=== PATIENT | male | born 1965 | race African-American/Black ===

== ENCOUNTER 2016-11-22 15:31 | Emergency (ER) | payer MEDICAID, OTHER ==
[~2016-11-22] VITALS: Ht 180.3 cm; Wt 113.4 kg
[2016-11-22 15:31] VITALS: BP 136/88
[~2016-11-22 15:31] MED LIST: FLUO20CA36 PO; HALO5TAB8 PO; OLAN5TAB3 PO
--- NOTE | 2016-11-22 15:31 | NUR ---
FOR PSYCH EVAL PT STS "I FELT THREATENED, I DONT FEEL SAFE OUT THERE". DENIES SI HI. NAD NOTED. PT AAO X4, AMB WITH STEADY GAIT. RR EVEN AND UNLABORED. PENDING MD BUSH.
--- NOTE | 2016-11-22 16:30 | NUR ---
FOOD ORDERD FOR PT. PT STATES WANTS ANOTHER FOOD TRAY. INSTRUCTED PT WE WILL PROVIDE SNACK WELL AT THIS TIME
--- NOTE | 2016-11-22 16:42 | NUR ---
UA OBTAINED CALLED LAB
[2016-11-22 17:08] LABS: BASOPHILS % (AUTO) 0.6 % (0.0-2.0); EOSINOPHILS # (AUTO) 0.1 /CMM (0.0-0.7); EOSINOPHILS % (AUTO) 1.3 % (0.0-6.0); HEMATOCRIT 44 % (39-51); HEMOGLOBIN 14.6 g/dL (13.5-17.5); LYMPHOCYTES # (AUTO) 1.6 /CMM (0.8-4.8); LYMPHOCYTES % (AUTO) 24.8 % (20.0-44.0); MEAN CORPUSCULAR HEMOGLOBIN 27 PG (26.0-33.0); MEAN CORPUSCULAR HGB CONC 33 g/dl (31.0-36.0); MEAN CORPUSCULAR VOLUME 82 fL (80-96); MONOCYTES # (AUTO) 0.4 /CMM (0.1-1.30); MONOCYTES % (AUTO) 6.9 % (2.0-12.0); NEUTROPHILS # (AUTO) 4.2 /CMM (1.8-8.9); NEUTROPHILS % (AUTO) 66.4 % (43.0-81.0); PLATELET COUNT (AUTO) 184 /CMM (150-450); RDW COEFFICIENT OF VARIATION 13.8 (11.5-15.0); RED BLOOD CELL COUNT(AUTO) 5.37 MIL/uL (4.5-6.0); WHITE BLOOD COUNT (AUTO) 6.4 K/uL (4.3-11.0)
[2016-11-22 17:15] LABS: APPEARANCE,URINE CLEAR (CLEAR); BILIRUBIN,URINE NEGATIVE (NEGATIVE); BLOOD, URINE NEGATIVE Ery/uL (NEGATIVE); COLOR,URINE YELLOW (YELLOW); KETONES,URINE NEGATIVE (NEGATIVE); LEUKOCYTE ESTERASE ,URINE NEGATIVE (NEGATIVE); NITRITE, URINE NEGATIVE (NEGATIVE); PROTEIN,URINE NEGATIVE (NEGATIVE); UGLUCOSE NEGATIVE (NEGATIVE); UROBILINOGEN,URINE 0.2 EU/dL (0.2)
[2016-11-22 17:24] LABS: CALCIUM, SERUM 8.7 mg/dL (8.5-10.1); CARBON DIOXIDE 26 mmol/L (21-32); CHLORIDE 108 mmol/L (98-107); CREATININE 1.1 mg/dL (0.6-1.3); GLUCOSE 100 mg/dL (74-106); POTASSIUM 3.9 mmol/L (3.5-5.1); SODIUM SERUM 144 mmol/L (136-145); UREA NITROGEN, BLOOD 17 mg/dL (7-18)
[2016-11-22 17:27] LABS: ALANINE AMINOTRANSFERASE 38 U/L (12-78); ALBUMIN 3.9 g/dL (3.4-5.0); ALCOHOL, BLOOD < 3 mg/dL (0-0); ALKALINE PHOSPHATASE 99 U/L (46-116); ASPARTATE AMINOTRANSFERASE 24 U/L (15-37); BILIRUBIN,TOTAL 0.2 mg/dL (0.2-1.0); SALICYLATE 3.8 mg/dL (2.8-20.0); TOTAL PROTEIN, SERUM 7.4 g/dL (6.4-8.2)
[2016-11-22 17:28] LABS: ACETAMINOPHEN 0 ug/ml (10-30)
--- NOTE | 2016-11-22 18:11 | NUR ---
CALLED [facility] FOR PSYCH EVAL ETA 1 HOUR
--- NOTE | 2016-11-22 19:19 | NUR ---
Patient eloped from facility. ER MD notified.
--- NOTE | 2016-11-22 19:57 | NUR ---
CALLED [employer] NON EMERGENCY DISPATCH TO NOTIFY THEM OF PATIENT ELOPING
== END 2016-11-22 19:19 | disposition left against medical advice (07) ==
LOC: ER 15:33
DX: F32.9 Major depressive disorder, single episode, unspecified (principal); F17.200 Nicotine dependence, unspecified, uncomplicated; F20.9 Schizophrenia, unspecified
CPT/HCPCS: 36415; 80048; 80076; 80305; 80329; 81001; 85025; 99284; A4606; G0480 ×2; Z7610; 81000-TC

== ENCOUNTER 2017-04-13 17:19 | Emergency (ER) | payer MEDICAID ==
[~2017-04-13] VITALS: Ht 182.9 cm; Wt 90.7 kg
--- NOTE | 2017-04-13 17:40 | NUR ---
FEELS LIKE LIFE IS IN DANGER, DENIES SI OR HI, D/C FROM [facility] TODAY, NAD NOTED, VSS, RESP EVEN AND UNLABORED, PT PUT ON MONITOR, WAITING FOR MD BUSH
--- NOTE | 2017-04-13 17:43 | NUR ---
URINE COLLECTED AND SENT TO LAB
[2017-04-13 18:10] LABS: BASOPHILS # (AUTO) 0.1 /CMM (0.0-0.2); BASOPHILS % (AUTO) 0.8 % (0.0-2.0); EOSINOPHILS # (AUTO) 0.1 /CMM (0.0-0.7); EOSINOPHILS % (AUTO) 1.2 % (0.0-6.0); HEMATOCRIT 38 % (39-51); HEMOGLOBIN 13.2 g/dL (13.5-17.5); LYMPHOCYTES # (AUTO) 1.5 /CMM (0.8-4.8); LYMPHOCYTES % (AUTO) 23.4 % (20.0-44.0); MEAN CORPUSCULAR HEMOGLOBIN 28 PG (26.0-33.0); MEAN CORPUSCULAR HGB CONC 35 g/dl (31.0-36.0); MEAN CORPUSCULAR VOLUME 80 fL (80-96); MONOCYTES # (AUTO) 0.4 /CMM (0.1-1.30); MONOCYTES % (AUTO) 6.2 % (2.0-12.0); NEUTROPHILS # (AUTO) 4.4 /CMM (1.8-8.9); NEUTROPHILS % (AUTO) 68.4 % (43.0-81.0); PLATELET COUNT (AUTO) 186 /CMM (150-450); WHITE BLOOD COUNT (AUTO) 6.5 K/uL (4.3-11.0)
[2017-04-13 18:21] LABS: CALCIUM, SERUM 8.8 mg/dL (8.5-10.1); CARBON DIOXIDE 30 mmol/L (21-32); CHLORIDE 108 mmol/L (98-107); CREATININE 1.5 mg/dL (0.6-1.3); GLUCOSE 86 mg/dL (74-106); POTASSIUM 3.9 mmol/L (3.5-5.1); SODIUM SERUM 145 mmol/L (136-145); UREA NITROGEN, BLOOD 19 mg/dL (7-18)
[2017-04-13 18:27] LABS: ACETAMINOPHEN < 10 ug/ml (10-30); ALANINE AMINOTRANSFERASE 32 U/L (12-78); ALBUMIN 3.5 g/dL (3.4-5.0); ALCOHOL, BLOOD < 3 mg/dL (0-0); ALKALINE PHOSPHATASE 87 U/L (46-116); ASPARTATE AMINOTRANSFERASE 31 U/L (15-37); BILIRUBIN,TOTAL 0.2 mg/dL (0.2-1.0); SALICYLATE 2.5 mg/dL (2.8-20.0); TOTAL PROTEIN, SERUM 6.8 g/dL (6.4-8.2)
[2017-04-13 19:02] LABS: APPEARANCE,URINE Clear (CLEAR); BILIRUBIN,URINE Negative (NEGATIVE); BLOOD, URINE Negative Ery/uL (NEGATIVE); COLOR,URINE Yellow (YELLOW); KETONES,URINE 15 (NEGATIVE); LEUKOCYTE ESTERASE ,URINE Trace (NEGATIVE); NITRITE, URINE Negative (NEGATIVE); PH,URINE 6.5 (5.0-8.0); PROTEIN,URINE Negative (NEGATIVE); UGLUCOSE Negative (NEGATIVE); UROBILINOGEN,URINE 0.2 EU/dL (0.2)
[2017-04-13 19:11] LABS: BACTERIA,URINE 1+ /HPF (None Seen); MUCUS,URINE Moderate /LPF (None Seen); RBC,URINE NONE SEEN /HPF (0-2); SQUAMOUS EPITHELIAL CELL,UR None Seen /HPF (None Seen); WBC,URINE NONE SEEN /HPF (0-3)
--- NOTE | 2017-04-13 19:29 | NUR ---
art, crisis nurse at
--- NOTE | 2017-04-13 20:44 | NUR ---
meal given to the pt
[2017-04-13 22:54] VITALS: BP 145/89
--- NOTE | 2017-04-13 22:54 | NUR ---
Patient is resting comfortably in bed with eyes closed. Easily aroused. VSS
--- NOTE | 2017-04-14 04:29 | NUR ---
Patient eloped from facility. ER MD notified.
== END 2017-04-14 04:30 | disposition left against medical advice (07) ==
LOC: ER 17:23
DX: R45.851 Suicidal ideations (principal); F32.9 Major depressive disorder, single episode, unspecified; F17.200 Nicotine dependence, unspecified, uncomplicated; F20.9 Schizophrenia, unspecified; Z59.0 Homelessness
CPT/HCPCS: 36415; 80048; 80076; 80305; 80329; 81001; 85025; 99285; A4606; G0480 ×2; Z7610; 81000-TC

== ENCOUNTER 2018-03-12 12:55 | Emergency (ER) | payer MEDICAID ==
[~2018-03-12] VITALS: Ht 180.3 cm; Wt 121.1 kg
--- NOTE | 2018-03-12 13:18 | NUR ---
52 Y/O MALE PLACED IN BED 13. PT APPEARS VERY DEPRESSED AND LOST. PT EXPRESSING SUICIDAL THOUGHS WITHOUT A PLAN
[2018-03-12 13:38] LABS: BASOPHILS # (AUTO) 0.1 /CMM (0.0-0.2); EOSINOPHILS % (AUTO) 2.3 % (0.0-6.0); HEMATOCRIT 40 % (39-51); HEMOGLOBIN 13.5 g/dL (13.5-17.5); LYMPHOCYTES # (AUTO) 1.6 /CMM (0.8-4.8); LYMPHOCYTES % (AUTO) 27.8 % (20.0-44.0); MEAN CORPUSCULAR HGB CONC 34 g/dl (31.0-36.0); MEAN CORPUSCULAR VOLUME 84 fL (80-96); MONOCYTES # (AUTO) 0.6 /CMM (0.1-1.30); MONOCYTES % (AUTO) 9.8 % (2.0-12.0); NEUTROPHILS # (AUTO) 3.4 /CMM (1.8-8.9); NEUTROPHILS % (AUTO) 59.1 % (43.0-81.0); PLATELET COUNT (AUTO) 183 /CMM (150-450); RED BLOOD CELL COUNT(AUTO) 4.81 MIL/uL (4.5-6.0); WHITE BLOOD COUNT (AUTO) 5.8 K/uL (4.3-11.0)
[2018-03-12 13:58] LABS: CALCIUM, SERUM 8.5 mg/dL (8.5-10.1); CARBON DIOXIDE 27 mmol/L (21-32); CHLORIDE 109 mmol/L (98-107); CREATININE 1.3 mg/dL (0.6-1.3); GLUCOSE 117 mg/dL (74-106); POTASSIUM 4.1 mmol/L (3.5-5.1); SODIUM SERUM 144 mmol/L (136-145); UREA NITROGEN, BLOOD 19 mg/dL (7-18)
[2018-03-12 14:03] LABS: ACETAMINOPHEN < 2 ug/ml (10-30); ALANINE AMINOTRANSFERASE 31 U/L (12-78); ALBUMIN 3.5 g/dL (3.4-5.0); ALCOHOL, BLOOD < 3 mg/dL (0-0); ALKALINE PHOSPHATASE 108 U/L (46-116); ASPARTATE AMINOTRANSFERASE 21 U/L (15-37); BILIRUBIN,TOTAL 0.2 mg/dL (0.2-1.0); SALICYLATE 3.8 mg/dL (2.8-20.0); TOTAL PROTEIN, SERUM 6.7 g/dL (6.4-8.2)
--- NOTE | 2018-03-12 14:06 | NUR ---
PT HAS A HISTORY OF SCHIZOPHRENIA. NOT COMPLIANT WITH HIS MEDICATIONS. PT GIVEN LUNCH. PT REQUESTING POPCORN RATHER THAN WHAT WAS SERVED
--- NOTE | 2018-03-12 14:08 | NUR ---
BLOOD HAS BEEN DRAWN AND SENT. WAITING FOR URINE.
[2018-03-12 16:20] LABS: APPEARANCE,URINE CLEAR (CLEAR); BILIRUBIN,URINE NEGATIVE (NEGATIVE); BLOOD, URINE NEGATIVE Ery/uL (NEGATIVE); COLOR,URINE YELLOW (YELLOW); KETONES,URINE TRACE (NEGATIVE); LEUKOCYTE ESTERASE ,URINE NEGATIVE (NEGATIVE); NITRITE, URINE NEGATIVE (NEGATIVE); PROTEIN,URINE NEGATIVE (NEGATIVE); UGLUCOSE NEGATIVE (NEGATIVE); UROBILINOGEN,URINE 0.2 EU/dL (0.2)
[2018-03-12 16:31] LABS: HYALINE CASTS, URINE Rare /LPF (None Seen)
[2018-03-12 16:32] LABS: BACTERIA,URINE Few /HPF (None Seen); RBC,URINE 0-2 /HPF (0-2); SQUAMOUS EPITHELIAL CELL,UR Rare /HPF (None Seen); WBC,URINE 0-2 /HPF (0-3)
--- NOTE | 2018-03-12 17:32 | NUR ---
PT WAITING TO BE EVALUATED.
--- NOTE | 2018-03-12 18:53 | NUR ---
PT EVALUATED. PT TO BE A VOLUNTARY ADMISSION TO [facility].
[2018-03-12 19:32] VITALS: BP 132/65
--- NOTE | 2018-03-12 20:22 | NUR ---
RECEIVED A CALL FROM ANALIA AT [facility] AND WAS TOLD THIS PT WAS ACCEPTED UNDER DR TAVERAS. NUMBER FOR NURSE TO NURSE REPORT IS [phone]
--- NOTE | 2018-03-12 20:26 | NUR ---
CALLED [facility], SPOKE TO RACHANA. S TRANSPORT ETA 9:30PM TO [facility]. TRIP #[id number].
--- NOTE | 2018-03-12 20:43 | NUR ---
[facility] WAS CALLED AND REPORT GIVEN TO TIARA. WAITING FOR AMBULANCE TO TRANSPORT PT TO [place].
--- NOTE | 2018-03-12 21:41 | NUR ---
AMBULANCE ARRIVES. PT TRANSFERRED TO [place].
== END 2018-03-12 21:44 ==
LOC: ER 12:58
DX: R45.851 Suicidal ideations (principal); F20.9 Schizophrenia, unspecified; F32.9 Major depressive disorder, single episode, unspecified; F17.200 Nicotine dependence, unspecified, uncomplicated; Z59.0 Homelessness; Z79.899 Other long term (current) drug therapy
CPT/HCPCS: 36415; 80048-TC; 80076-TC; 80305; 81000-TC; 85025-TC; A4606; G0480; Z7610

== ENCOUNTER 2018-04-06 19:19 | Emergency (ER) | payer MEDICAID ==
[~2018-04-06] VITALS: Ht 180.3 cm; Wt 122.9 kg
--- NOTE | 2018-04-06 20:09 | NUR ---
PT PROVIDED URINE SAMPLE AND LABS ARE BEING DRAWN BY 2ND PRESSMAN IN TRIAGE ROOM; PENDING OPEN BED
[2018-04-06 20:29] LABS: BASOPHILS # (AUTO) 0.1 /CMM (0.0-0.2); EOSINOPHILS % (AUTO) 1.4 % (0.0-6.0); HEMATOCRIT 43 % (39-51); LYMPHOCYTES # (AUTO) 2.5 /CMM (0.8-4.8); LYMPHOCYTES % (AUTO) 35.1 % (20.0-44.0); MEAN CORPUSCULAR HGB CONC 33 g/dl (31.0-36.0); MEAN CORPUSCULAR VOLUME 83 fL (80-96); MONOCYTES # (AUTO) 0.7 /CMM (0.1-1.30); MONOCYTES % (AUTO) 9.5 % (2.0-12.0); NEUTROPHILS # (AUTO) 3.8 /CMM (1.8-8.9); PLATELET COUNT (AUTO) 172 /CMM (150-450); RED BLOOD CELL COUNT(AUTO) 5.13 MIL/uL (4.5-6.0); WHITE BLOOD COUNT (AUTO) 7.2 K/uL (4.3-11.0)
[2018-04-06 20:33] LABS: APPEARANCE,URINE Clear (CLEAR); BILIRUBIN,URINE Negative (NEGATIVE); BLOOD, URINE Negative Ery/uL (NEGATIVE); COLOR,URINE Yellow (YELLOW); KETONES,URINE Trace (NEGATIVE); LEUKOCYTE ESTERASE ,URINE Negative (NEGATIVE); NITRITE, URINE Negative (NEGATIVE); PROTEIN,URINE Negative (NEGATIVE); UGLUCOSE Negative (NEGATIVE); UROBILINOGEN,URINE 0.2 EU/dL (0.2)
[2018-04-06 20:41] LABS: CALCIUM, SERUM 9.1 mg/dL (8.5-10.1); CARBON DIOXIDE 28 mmol/L (21-32); CHLORIDE 106 mmol/L (98-107); CREATININE 1.2 mg/dL (0.6-1.3); GLUCOSE 87 mg/dL (74-106); POTASSIUM 3.8 mmol/L (3.5-5.1); SODIUM SERUM 142 mmol/L (136-145); UREA NITROGEN, BLOOD 23 mg/dL (7-18)
[2018-04-06 20:55] LABS: ACETAMINOPHEN 0 ug/ml (10-30); ALANINE AMINOTRANSFERASE 30 U/L (12-78); ALCOHOL, BLOOD < 3 mg/dL (0-0); ALKALINE PHOSPHATASE 99 U/L (46-116); ASPARTATE AMINOTRANSFERASE 25 U/L (15-37); BILIRUBIN,DIRECT 0.1 mg/dL (0.0-0.2); BILIRUBIN,TOTAL 0.2 mg/dL (0.2-1.0); SALICYLATE 4.2 mg/dL (2.8-20.0); TOTAL PROTEIN, SERUM 7.4 g/dL (6.4-8.2)
[2018-04-06 21:12] LABS: BACTERIA,URINE Rare /HPF (None Seen); MUCUS,URINE Many /LPF (None Seen); RBC,URINE 0-2 /HPF (0-2); SQUAMOUS EPITHELIAL CELL,UR 0-2 /HPF (None Seen); WBC,URINE 0-2 /HPF (0-3)
--- NOTE | 2018-04-06 22:20 | NUR ---
PER ANALIA AT [facility], ALL 3 FACILITIES ARE AT [facility] BUT HE ASKED FOR CLINICALS TO BE FAXED IN CASE A BED OPENS OVERNIGHT. CLINICALS FAXED TO [phone].
--- NOTE | 2018-04-06 23:26 | NUR ---
PT CALLED FROM [facility] X2 BY FINANCIAL AID DIRECTOR, PT IS NOT IN WR BUT HIS BELONGINGS ARE PRESENT
[2018-04-07 00:53] VITALS: BP 158/98
== END 2018-04-07 00:53 | disposition home or self-care (01) ==
LOC: ER 19:26
DX: R45.851 Suicidal ideations (principal); F30.9 Manic episode, unspecified; F17.200 Nicotine dependence, unspecified, uncomplicated; Z59.0 Homelessness; Z79.899 Other long term (current) drug therapy
CPT/HCPCS: 36415; 80048-TC; 80076-TC; 80305; 81000-TC; 85025-TC; G0480

== ENCOUNTER 2018-05-20 16:03 | Emergency (ER) | payer MEDICAID ==
[~2018-05-20] VITALS: Ht 180.3 cm; Wt 122.9 kg
[2018-05-20 17:31] LABS: BASOPHILS % (AUTO) 0.7 % (0.0-2.0); EOSINOPHILS % (AUTO) 1.5 % (0.0-6.0); HEMATOCRIT 44 % (39-51); HEMOGLOBIN 14.7 g/dL (13.5-17.5); LYMPHOCYTES # (AUTO) 2.1 /CMM (0.8-4.8); LYMPHOCYTES % (AUTO) 29.4 % (20.0-44.0); MEAN CORPUSCULAR HGB CONC 33 g/dl (31.0-36.0); MEAN CORPUSCULAR VOLUME 83 fL (80-96); MONOCYTES # (AUTO) 0.8 /CMM (0.1-1.30); MONOCYTES % (AUTO) 11.8 % (2.0-12.0); NEUTROPHILS % (AUTO) 56.6 % (43.0-81.0); PLATELET COUNT (AUTO) 192 /CMM (150-450); RED BLOOD CELL COUNT(AUTO) 5.34 MIL/uL (4.5-6.0); WHITE BLOOD COUNT (AUTO) 7.1 K/uL (4.3-11.0)
[2018-05-20 17:47] LABS: CALCIUM, SERUM 9.4 mg/dL (8.5-10.1); CARBON DIOXIDE 29 mmol/L (21-32); CHLORIDE 107 mmol/L (98-107); CREATININE 1.1 mg/dL (0.6-1.3); GLUCOSE 90 mg/dL (74-106); POTASSIUM 4.1 mmol/L (3.5-5.1); SODIUM SERUM 143 mmol/L (136-145); UREA NITROGEN, BLOOD 21 mg/dL (7-18)
[2018-05-20 18:00] LABS: ACETAMINOPHEN < 10 ug/ml (10-30); ALANINE AMINOTRANSFERASE 31 U/L (12-78); ALBUMIN 4.1 g/dL (3.4-5.0); ALCOHOL, BLOOD < 3 mg/dL (0-0); ALKALINE PHOSPHATASE 110 U/L (46-116); ASPARTATE AMINOTRANSFERASE 30 U/L (15-37); BILIRUBIN,DIRECT 0.1 mg/dL (0.0-0.2); BILIRUBIN,TOTAL 0.3 mg/dL (0.2-1.0); SALICYLATE 3.7 mg/dL (2.8-20.0); TOTAL PROTEIN, SERUM 7.6 g/dL (6.4-8.2)
--- NOTE | 2018-05-20 18:30 | NUR ---
PT REC'D A FOOD TRAY AND IS TOLERATING PO WELL.
[2018-05-20 18:31] LABS: APPEARANCE,URINE Clear (CLEAR); BILIRUBIN,URINE Negative (NEGATIVE); BLOOD, URINE Trace-intact Ery/uL (NEGATIVE); COLOR,URINE Yellow (YELLOW); KETONES,URINE 15 (NEGATIVE); LEUKOCYTE ESTERASE ,URINE Negative (NEGATIVE); NITRITE, URINE Negative (NEGATIVE); PROTEIN,URINE Negative (NEGATIVE); UGLUCOSE Negative (NEGATIVE); UROBILINOGEN,URINE 0.2 EU/dL (0.2)
[2018-05-20 18:36] LABS: BACTERIA,URINE Rare /HPF (None Seen); RBC,URINE 0-2 /HPF (0-2); SQUAMOUS EPITHELIAL CELL,UR None Seen /HPF (None Seen); WBC,URINE NONE SEEN /HPF (0-3)
[2018-05-20 18:37] LABS: MUCUS,URINE Many /LPF (None Seen)
--- NOTE | 2018-05-20 19:42 | NUR ---
MICHELL RN/BOOK AGENT ARRIVED AND IS REVIEWING THE PT'S CHART.
--- NOTE | 2018-05-20 20:30 | NUR ---
PT REC'D AN EGG SALAD SANDWICH. PT TOLERATED PO WELL.
--- NOTE | 2018-05-20 21:25 | NUR ---
[facility] CALLED FOR TRANSPORT ETA 0000, TRIP# [id number]
--- NOTE | 2018-05-20 21:30 | NUR ---
CALLED STACIA DIAZ FOR REPORT AT [facility].
--- NOTE | 2018-05-20 22:15 | NUR ---
PT REC'D PUDDING X 2 AND JELLO. PT TOLERATED PO WELL.
--- NOTE | 2018-05-20 23:14 | NUR ---
PT APPEARS TO BE RESTING COMFORTABLY WITH NO S/S OF PAIN OR DISTRESS.
[2018-05-20 23:50] VITALS: BP 148/78
--- NOTE | 2018-05-20 23:50 | NUR ---
REPORT GIVEN TO RIGOBERTO EMT. PT BEING TRANSFERRED OUT TO [facility].
== END 2018-05-20 23:52 ==
LOC: ER 16:03
DX: R45.851 Suicidal ideations (principal); F32.9 Major depressive disorder, single episode, unspecified; F17.200 Nicotine dependence, unspecified, uncomplicated; Z59.0 Homelessness; Z79.899 Other long term (current) drug therapy
CPT/HCPCS: 36415; 80048; 80076; 80305; 80307; 80329; 81001; 85025; 99285; A4606; G0480; 81000-TC

== ENCOUNTER 2018-07-08 14:37 | Emergency (ER) | payer MEDICAID ==
[~2018-07-08] VITALS: Ht 170.2 cm; Wt 70.3 kg
[2018-07-08] MEDS ORDERED: OLANZAPINE 5 MG TABLET ONE (15:17)
--- NOTE | 2018-07-08 15:25 | NUR ---
PT BIB SELF, +SI/-HI. PT WANTS TO BE ADMITTED AT [facility]. PT STS HE'S PLANNING TO CUT HIMSELF WITH A GLASS. PT AAOX3, VSS. CALM & COOPERATIVE. DENIES ANY DISCOMFORT @ THIS TIME. PT SEEN & EVAL'D BY KYLEE HANDLEY. MEDICATED ORDERED & WILL CONT TO MONITOR.
[2018-07-08 15:28] LABS: BASOPHILS # (AUTO) 0.1 /CMM (0.0-0.2); BASOPHILS % (AUTO) 0.7 % (0.0-2.0); EOSINOPHILS % (AUTO) 0.8 % (0.0-6.0); HEMATOCRIT 42 % (39-51); HEMOGLOBIN 13.7 g/dL (13.5-17.5); LYMPHOCYTES # (AUTO) 1.8 /CMM (0.8-4.8); LYMPHOCYTES % (AUTO) 21.8 % (20.0-44.0); MEAN CORPUSCULAR HGB CONC 33 g/dl (31.0-36.0); MEAN CORPUSCULAR VOLUME 83 fL (80-96); MONOCYTES # (AUTO) 0.7 /CMM (0.1-1.30); MONOCYTES % (AUTO) 8.5 % (2.0-12.0); NEUTROPHILS # (AUTO) 5.5 /CMM (1.8-8.9); NEUTROPHILS % (AUTO) 68.2 % (43.0-81.0); PLATELET COUNT (AUTO) 181 /CMM (150-450); RED BLOOD CELL COUNT(AUTO) 5.01 MIL/uL (4.5-6.0)
[2018-07-08] MEDS ORDERED: OLANZAPINE 5 MG TABLET PO ONE (15:30)
[2018-07-08 15:33] LABS: CALCIUM, SERUM 9.1 mg/dL (8.5-10.1); CARBON DIOXIDE 26 mmol/L (21-32); CHLORIDE 107 mmol/L (98-107); CREATININE 1.2 mg/dL (0.6-1.3); GLUCOSE 127 mg/dL (74-106); POTASSIUM 3.3 mmol/L (3.5-5.1); SODIUM SERUM 142 mmol/L (136-145); UREA NITROGEN, BLOOD 22 mg/dL (7-18)
[2018-07-08 15:43] LABS: ALANINE AMINOTRANSFERASE 28 U/L (12-78); ALBUMIN 4.3 g/dL (3.4-5.0); ALKALINE PHOSPHATASE 101 U/L (46-116); ASPARTATE AMINOTRANSFERASE 29 U/L (15-37); BILIRUBIN,DIRECT 0.1 mg/dL (0.0-0.2); BILIRUBIN,TOTAL 0.4 mg/dL (0.2-1.0); SALICYLATE 3.9 mg/dL (2.8-20.0); TOTAL PROTEIN, SERUM 7.6 g/dL (6.4-8.2)
[2018-07-08 15:46] LABS: ACETAMINOPHEN < 2 ug/ml (10-30); ALCOHOL, BLOOD < 3 mg/dL (0-0)
[2018-07-08 16:44] LABS: APPEARANCE,URINE Clear (CLEAR); BILIRUBIN,URINE SMALL (NEGATIVE); BLOOD, URINE Negative Ery/uL (NEGATIVE); COLOR,URINE Yellow (YELLOW); KETONES,URINE Trace (NEGATIVE); LEUKOCYTE ESTERASE ,URINE Negative (NEGATIVE); NITRITE, URINE Negative (NEGATIVE); PH,URINE 5.5 (5.0-8.0); PROTEIN,URINE 30 mg/dl (NEGATIVE); UGLUCOSE Negative (NEGATIVE); UROBILINOGEN,URINE 0.2 EU/dL (0.2)
[2018-07-08 16:56] LABS: BACTERIA,URINE None seen /HPF (None Seen); RBC,URINE 0-2 /HPF (0-2); SQUAMOUS EPITHELIAL CELL,UR Few /HPF (None Seen); YEAST,URINE None Seen /HPF (None Seen)
[2018-07-08 16:57] LABS: MUCUS,URINE FEW /LPF (None Seen)
--- NOTE | 2018-07-08 17:30 | NUR ---
PT CALM & COOPERATIVE, NAD NOTED @ THIS TIME. WILL CONT TO MONITOR.
--- NOTE | 2018-07-08 19:22 | NUR ---
Patient is resting comfortably in bed with eyes closed. Easily aroused. VSS
--- NOTE | 2018-07-08 19:43 | NUR ---
[facility] transport eta 2100 trip # [id number]
--- NOTE | 2018-07-08 20:30 | NUR ---
Patient is resting comfortably in bed with eyes closed. Easily aroused. VSS
--- NOTE | 2018-07-08 21:35 | NUR ---
called [facility] for eta, was informed transport will be here in "15mins"
--- NOTE | 2018-07-08 21:45 | NUR ---
CALLED [facility] & GAVE REPORT TO STACIA GONZALES FOR CONT OF CARE.
[2018-07-08] MEDS ORDERED: AMLODIPINE BESYLATE 5 MG TABLET ONE (22:43)
--- NOTE | 2018-07-08 22:44 | NUR ---
PER PSYCHOLOGY DEPARTMENT CHAIR AT [facility], PT IS OKAY TO BE TRANSFERRED AFTER BEING MEDICATED WITH NORVASC.
[2018-07-08 22:46] VITALS: BP 164/106
[2018-07-08] MEDS ORDERED: AMLODIPINE BESYLATE 5 MG TABLET PO ONE (23:00)
== END 2018-07-08 22:50 ==
LOC: ER 14:37
DX: R45.851 Suicidal ideations (principal); F17.200 Nicotine dependence, unspecified, uncomplicated; Z59.0 Homelessness; Z79.899 Other long term (current) drug therapy
CPT/HCPCS: 36415; 80048; 80076; 80305; 80307; 80329; 81001; 85025; 99285; G0480; 81000-TC

== ENCOUNTER 2018-08-07 11:15 | Emergency (ER) | payer MEDICAID ==
[~2018-08-07] VITALS: Ht 180.3 cm; Wt 122.9 kg
--- NOTE | 2018-08-07 11:38 | NUR ---
CALLED PT IN WAITING ROOM, NO RESPONSE.
[2018-08-07 12:19] LABS: APPEARANCE,URINE Clear (CLEAR); BILIRUBIN,URINE Negative (NEGATIVE); BLOOD, URINE Negative Ery/uL (NEGATIVE); COLOR,URINE Yellow (YELLOW); KETONES,URINE Negative (NEGATIVE); LEUKOCYTE ESTERASE ,URINE Negative (NEGATIVE); NITRITE, URINE Negative (NEGATIVE); PH,URINE 5.5 (5.0-8.0); PROTEIN,URINE Negative (NEGATIVE); UGLUCOSE Negative (NEGATIVE); UROBILINOGEN,URINE 0.2 EU/dL (0.2)
[2018-08-07 12:34] LABS: BASOPHILS # (AUTO) 0.1 /CMM (0.0-0.2); BASOPHILS % (AUTO) 0.8 % (0.0-2.0); EOSINOPHILS % (AUTO) 1.8 % (0.0-6.0); HEMATOCRIT 40 % (39-51); HEMOGLOBIN 13.4 g/dL (13.5-17.5); LYMPHOCYTES # (AUTO) 1.6 /CMM (0.8-4.8); LYMPHOCYTES % (AUTO) 24.9 % (20.0-44.0); MEAN CORPUSCULAR HGB CONC 33 g/dl (31.0-36.0); MEAN CORPUSCULAR VOLUME 84 fL (80-96); MONOCYTES # (AUTO) 0.6 /CMM (0.1-1.30); MONOCYTES % (AUTO) 9.3 % (2.0-12.0); NEUTROPHILS % (AUTO) 63.2 % (43.0-81.0); PLATELET COUNT (AUTO) 181 /CMM (150-450); RED BLOOD CELL COUNT(AUTO) 4.83 MIL/uL (4.5-6.0); WHITE BLOOD COUNT (AUTO) 6.3 K/uL (4.3-11.0)
[2018-08-07 12:40] LABS: CALCIUM, SERUM 8.5 mg/dL (8.5-10.1); CARBON DIOXIDE 31 mmol/L (21-32); CHLORIDE 109 mmol/L (98-107); CREATININE 1.2 mg/dL (0.6-1.3); GLUCOSE 87 mg/dL (74-106); POTASSIUM 3.8 mmol/L (3.5-5.1); SODIUM SERUM 145 mmol/L (136-145); UREA NITROGEN, BLOOD 17 mg/dL (7-18)
[2018-08-07 12:46] LABS: ALANINE AMINOTRANSFERASE 28 U/L (12-78); ALBUMIN 3.6 g/dL (3.4-5.0); ALCOHOL, BLOOD < 3 mg/dL (0-0); ALKALINE PHOSPHATASE 89 U/L (46-116); ASPARTATE AMINOTRANSFERASE 23 U/L (15-37); BILIRUBIN,DIRECT 0.1 mg/dL (0.0-0.2); BILIRUBIN,TOTAL 0.3 mg/dL (0.2-1.0); SALICYLATE 3.9 mg/dL (2.8-20.0); TOTAL PROTEIN, SERUM 6.6 g/dL (6.4-8.2)
[2018-08-07 12:49] LABS: ACETAMINOPHEN < 2 ug/ml (10-30)
--- NOTE | 2018-08-07 14:18 | NUR ---
ASSUMED CARE OF PT. PT APPEARS TO BE RESTING COMFORTABLY. PT IS MEDICALLY CLEARED AND AMANDEEP, ENGINEER CHIEF WAS CALLED FOR EVAL.
--- NOTE | 2018-08-07 14:18 | NUR ---
Note ricarda in EDM - 08/07/18 at 1420 by LUIS E ASSUMED CARE OF PT. PT IS MEDICALLY CLEARED AND AMANDEEP, MOVER HELPER WAS CALLED FOR EVAL. PT REQUESTED JUICE AND RECEIVED 2. PT PULLED OFF ALL LEADS FOR THE MONITOR AND DOES NOT WANT THEM ON AT THIS TIME.
--- NOTE | 2018-08-07 14:46 | NUR ---
CALLED CRISIS TEAM, CARLOS IS ON HER WAY. ONE HOUR ETA
--- NOTE | 2018-08-07 15:15 | NUR ---
PT APPEARS TO BE RESTING COMFORTABLY WITH NO S/S OF PAIN OR DISTRESS.
--- NOTE | 2018-08-07 15:46 | NUR ---
LISA BERNSTEINW IS AT THE BEDSIDE.
--- NOTE | 2018-08-07 17:30 | NUR ---
CALLING REPORT TO [facility]. AMBULANCE ARRIVED AND EMT'S ARE AT THE BEDSIDE. REPORT GIVEN TO AMBULANCE EMT.
[2018-08-07 17:40] VITALS: BP 156/98
--- NOTE | 2018-08-07 17:43 | NUR ---
REPORT GIVEN TO STACIA PICHARDO
--- NOTE | 2018-08-07 17:51 | NUR ---
PT IS BEING TRANSFERED TO [facility]IA AMBULANCE. VSS. REPORT GIVEN TO [facility] JOYNER.
== END 2018-08-07 17:55 ==
LOC: ER 11:15
DX: R45.851 Suicidal ideations (principal); F17.200 Nicotine dependence, unspecified, uncomplicated; F32.9 Major depressive disorder, single episode, unspecified; F10.10 Alcohol abuse, uncomplicated; Y90.0 Blood alcohol level of less than 20 mg/100 ml; Z59.0 Homelessness
CPT/HCPCS: 36415; 80048; 80076; 80305; 80307; 80329; 81001; 85025; 99285; G0480; J7040; 81000-TC

== ENCOUNTER 2018-09-02 17:57 | Emergency (ER) | payer MEDICAID ==
[~2018-09-02] VITALS: Ht 180.3 cm; Wt 113.4 kg
--- NOTE | 2018-09-02 20:01 | NUR ---
PT PRESENTED TO THE ER WITH A C/O SI W/PLAN TO OD ON ZYPREXA. PT IS AMBULATORY WITH A STEADY GAIT. VSS. PT STATED THAT HE SOMETIMES HEARS VOICES. PT IS TRYING TO GIVE A URINE SAMPLE.
--- NOTE | 2018-09-02 20:30 | NUR ---
ENRICO, LICENSED INSURANCE SALES AGENT, IS AT THE BEDSIDE FOR BLOOD DRAW.
[2018-09-02 20:31] LABS: APPEARANCE,URINE Clear (CLEAR); BILIRUBIN,URINE SMALL (NEGATIVE); BLOOD, URINE Negative Ery/uL (NEGATIVE); COLOR,URINE Yellow (YELLOW); KETONES,URINE 40 (NEGATIVE); LEUKOCYTE ESTERASE ,URINE Negative (NEGATIVE); NITRITE, URINE Negative (NEGATIVE); PH,URINE 5.5 (5.0-8.0); PROTEIN,URINE 30 mg/dl (NEGATIVE); UGLUCOSE Negative (NEGATIVE); UROBILINOGEN,URINE 0.2 EU/dL (0.2)
[2018-09-02 20:34] LABS: BASOPHILS # (AUTO) 0.1 /CMM (0.0-0.2); BASOPHILS % (AUTO) 0.7 % (0.0-2.0); EOSINOPHILS % (AUTO) 1.7 % (0.0-6.0); HEMATOCRIT 46 % (39-51); HEMOGLOBIN 15.2 g/dL (13.5-17.5); LYMPHOCYTES # (AUTO) 2.2 /CMM (0.8-4.8); LYMPHOCYTES % (AUTO) 31.9 % (20.0-44.0); MEAN CORPUSCULAR HGB CONC 33 g/dl (31.0-36.0); MEAN CORPUSCULAR VOLUME 83 fL (80-96); MONOCYTES # (AUTO) 0.8 /CMM (0.1-1.30); MONOCYTES % (AUTO) 10.9 % (2.0-12.0); NEUTROPHILS # (AUTO) 3.9 /CMM (1.8-8.9); NEUTROPHILS % (AUTO) 54.8 % (43.0-81.0); PLATELET COUNT (AUTO) 203 /CMM (150-450); RED BLOOD CELL COUNT(AUTO) 5.52 MIL/uL (4.5-6.0)
[2018-09-02 20:43] LABS: CALCIUM, SERUM 9.2 mg/dL (8.5-10.1); CARBON DIOXIDE 24 mmol/L (21-32); CHLORIDE 102 mmol/L (98-107); CREATININE 1.2 mg/dL (0.6-1.3); GLUCOSE 90 mg/dL (74-106); POTASSIUM 3.4 mmol/L (3.5-5.1); SODIUM SERUM 138 mmol/L (136-145); UREA NITROGEN, BLOOD 22 mg/dL (7-18)
--- NOTE | 2018-09-02 20:45 | NUR ---
PT REC'D A SANDWICH, JUICE, APPLE SAUCE, AND JELLO. PT IS TOLERATING PO WELL.
[2018-09-02 20:57] LABS: ALANINE AMINOTRANSFERASE 51 U/L (12-78); ALBUMIN 4.1 g/dL (3.4-5.0); ALCOHOL, BLOOD < 3 mg/dL (0-0); ALKALINE PHOSPHATASE 98 U/L (46-116); ASPARTATE AMINOTRANSFERASE 53 U/L (15-37); BILIRUBIN,DIRECT 0.1 mg/dL (0.0-0.2); BILIRUBIN,TOTAL 0.6 mg/dL (0.2-1.0); SALICYLATE 5.2 mg/dL (2.8-20.0); TOTAL PROTEIN, SERUM 7.8 g/dL (6.4-8.2)
[2018-09-02 21:01] LABS: BACTERIA,URINE None seen /HPF (None Seen); RBC,URINE 0-2 /HPF (0-2); SQUAMOUS EPITHELIAL CELL,UR Few /HPF (None Seen); WBC,URINE 0-2 /HPF (0-3)
[2018-09-02 21:01] LABS: ACETAMINOPHEN < 2 ug/ml (10-30)
--- NOTE | 2018-09-02 22:01 | NUR ---
CALLED ART PERFORMANCE TEST ARCHITECT FOR CRISIS EVAL
--- NOTE | 2018-09-02 22:33 | NUR ---
MATHEW RABAGO LCSW, IS AT THE BEDSIDE EVALUATING THE PT.
--- NOTE | 2018-09-02 23:22 | NUR ---
PT REC'D A TUNA SANDWICH AND JUICE.
--- NOTE | 2018-09-02 23:22 | NUR ---
WAITING FOR [facility] TO CALL BACK WITH INFORMATION RE: REPORT.
[2018-09-03 00:26] VITALS: BP 134/88
--- NOTE | 2018-09-03 00:27 | NUR ---
SPOKE WITH SENDY FROM [facility], STILL WORKING ON GETTING PT'S BED
--- NOTE | 2018-09-03 00:30 | NUR ---
PT REC'D JUICE AND CRACKERS.
--- NOTE | 2018-09-03 01:01 | NUR ---
PT ACCEPTED TO [facility] ACCEPTING PHYSICIAN: DR. TAVERAS NUMBER FOR REPORT EXT [phone]
--- NOTE | 2018-09-03 01:06 | NUR ---
CALLED [facility] FOR TRANSPORTATION. ETA 0230. TRIP NUMBER [id number]
--- NOTE | 2018-09-03 01:11 | NUR ---
CALLING REPORT TO [facility] TO STACIA CERVANTES .
--- NOTE | 2018-09-03 01:52 | NUR ---
PT CAME OUT OF THE ROOM AND STATED: "I WANT ANOTHER SANDWICH" PT WAS TOLD THAT WE DO NOT HAVE ANY MORE SANDWICHES.
--- NOTE | 2018-09-03 02:03 | NUR ---
REPORT GIVEN TO RIGOBERTO EMT.
--- NOTE | 2018-09-03 02:12 | NUR ---
PT TRANSFERED OUT VIA AMBULANCE. VSS
== END 2018-09-03 02:13 ==
LOC: ER 17:57
DX: R45.851 Suicidal ideations (principal); F17.200 Nicotine dependence, unspecified, uncomplicated; Z59.0 Homelessness; Z79.899 Other long term (current) drug therapy
CPT/HCPCS: 36415; 80048; 80076; 80305; 80307; 80329; 81001; 85025; 99285; G0480; 81000-TC

== ENCOUNTER 2018-09-19 13:55 | Emergency (ER) | payer MEDICAID ==
[~2018-09-19] VITALS: Ht 170.2 cm; Wt 95.3 kg
--- NOTE | 2018-09-19 14:05 | NUR ---
PT CALLED TO TRIAGE, NOT READY TO BE SEEN AT THIS TIME
--- NOTE | 2018-09-19 14:21 | NUR ---
FEELING SUICIDAL WITH PLAN TO OVERDOSE ON PILLS. RE[facility]ING [facility]. DENIES HI AT THIS TIME, BUT STATES "IT COMES AND GOES". SUICIDE PRECAUTIONS IN PLACE. READY FOR EVAL.
--- NOTE | 2018-09-19 14:53 | NUR ---
URINE SENT TO STAT LAB
[2018-09-19 15:02] LABS: APPEARANCE,URINE Clear (CLEAR); BILIRUBIN,URINE Negative (NEGATIVE); BLOOD, URINE Negative Ery/uL (NEGATIVE); COLOR,URINE Yellow (YELLOW); KETONES,URINE Trace (NEGATIVE); LEUKOCYTE ESTERASE ,URINE Negative (NEGATIVE); NITRITE, URINE Negative (NEGATIVE); PH,URINE 6.5 (5.0-8.0); PROTEIN,URINE Negative (NEGATIVE); UGLUCOSE Negative (NEGATIVE); UROBILINOGEN,URINE 0.2 EU/dL (0.2)
[2018-09-19 15:04] LABS: CALCIUM, SERUM 8.3 mg/dL (8.5-10.1); CARBON DIOXIDE 30 mmol/L (21-32); CHLORIDE 107 mmol/L (98-107); CREATININE 1.2 mg/dL (0.6-1.3); GLUCOSE 71 mg/dL (74-106); POTASSIUM 3.8 mmol/L (3.5-5.1); SODIUM SERUM 141 mmol/L (136-145); UREA NITROGEN, BLOOD 19 mg/dL (7-18)
[2018-09-19 15:05] LABS: BASOPHILS % (AUTO) 0.7 % (0.0-2.0); EOSINOPHILS % (AUTO) 1.6 % (0.0-6.0); HEMATOCRIT 46 % (39-51); HEMOGLOBIN 15.1 g/dL (13.5-17.5); LYMPHOCYTES # (AUTO) 1.5 /CMM (0.8-4.8); LYMPHOCYTES % (AUTO) 24.7 % (20.0-44.0); MEAN CORPUSCULAR HGB CONC 33 g/dl (31.0-36.0); MEAN CORPUSCULAR VOLUME 84 fL (80-96); MONOCYTES # (AUTO) 0.5 /CMM (0.1-1.30); MONOCYTES % (AUTO) 8.5 % (2.0-12.0); NEUTROPHILS % (AUTO) 64.5 % (43.0-81.0); RED BLOOD CELL COUNT(AUTO) 5.43 MIL/uL (4.5-6.0); WHITE BLOOD COUNT (AUTO) 6.2 K/uL (4.3-11.0)
--- NOTE | 2018-09-19 15:15 | NUR ---
PT PROVIDED FOOD TRAY
[2018-09-19 15:17] LABS: ALANINE AMINOTRANSFERASE 24 U/L (12-78); ALBUMIN 3.7 g/dL (3.4-5.0); ALCOHOL, BLOOD < 3 mg/dL (0-0); ALKALINE PHOSPHATASE 102 U/L (46-116); ASPARTATE AMINOTRANSFERASE 16 U/L (15-37); BILIRUBIN,DIRECT 0.1 mg/dL (0.0-0.2); BILIRUBIN,TOTAL 0.3 mg/dL (0.2-1.0)
[2018-09-19 15:18] LABS: ACETAMINOPHEN 0 ug/ml (10-30)
[2018-09-19 15:33] LABS: BACTERIA,URINE None seen /HPF (None Seen); RBC,URINE 0-2 /HPF (0-2); SQUAMOUS EPITHELIAL CELL,UR Few /HPF (None Seen); WBC,URINE 0-2 /HPF (0-3)
[2018-09-19 15:34] LABS: PLATELET COUNT (AUTO) 154 /CMM (150-450)
--- NOTE | 2018-09-19 16:01 | NUR ---
LANDSCAPING CREW LEADER ART AT BEDSIDE FOR EVAL
--- NOTE | 2018-09-19 18:02 | NUR ---
PT ASLEEP IN BED. VSS, NO COMPLAINTS AT THIS TIME. WILL CONT TO OBSERVE.
[2018-09-19 18:17] VITALS: BP 137/80
--- NOTE | 2018-09-19 18:39 | NUR ---
SPOKE WITH ANALIA AT [facility]. PT ACCEPTED TO DR TAVERAS NUMBER FOR REPORT: [phone] EXT [phone]
--- NOTE | 2018-09-19 18:46 | NUR ---
CALLED FOR S TRANSPORT TO [facility], TRIP # [id number]
--- NOTE | 2018-09-19 19:29 | NUR ---
REPORT GIVEN TO STACIA MEADE AT [facility]
--- NOTE | 2018-09-19 20:40 | NUR ---
REPORT GIVEN TO EMT FOR TRANSPORT
== END 2018-09-19 20:40 ==
LOC: ER 13:55
DX: R45.851 Suicidal ideations (principal); F17.200 Nicotine dependence, unspecified, uncomplicated; Z59.0 Homelessness; Z79.899 Other long term (current) drug therapy
CPT/HCPCS: 36415; 80048; 80076; 80305; 80307; 80329; 81001; 85025; 99285; G0480; 81000-TC

== ENCOUNTER 2018-10-01 20:17 | Emergency (ER) | payer MEDICAID ==
[~2018-10-01] VITALS: Ht 180.3 cm; Wt 108.9 kg
--- NOTE | 2018-10-01 22:17 | NUR ---
+SI, PLAN TO OVERDOSE ON MEDS, -HI. PT DENIES PAIN AT THIS TIME. PT HAS MULTIPLE VISITS HERE FOR SAME COMPLAINT. SUICIDE PRECAUTIONS IMPLEMENTED. PT WANDED BY SECURITY. PROVIDED URINE CUP FOR SAMPLE. READY FOR EVAL.
[2018-10-01 22:20] LABS: BASOPHILS # (AUTO) 0.1 /CMM (0.0-0.2); BASOPHILS % (AUTO) 0.9 % (0.0-2.0); EOSINOPHILS % (AUTO) 2.2 % (0.0-6.0); HEMATOCRIT 46 % (39-51); HEMOGLOBIN 15.2 g/dL (13.5-17.5); LYMPHOCYTES # (AUTO) 2.9 /CMM (0.8-4.8); MEAN CORPUSCULAR HGB CONC 33 g/dl (31.0-36.0); MEAN CORPUSCULAR VOLUME 83 fL (80-96); MONOCYTES # (AUTO) 0.8 /CMM (0.1-1.30); MONOCYTES % (AUTO) 8.9 % (2.0-12.0); NEUTROPHILS # (AUTO) 4.7 /CMM (1.8-8.9); PLATELET COUNT (AUTO) 179 /CMM (150-450); WHITE BLOOD COUNT (AUTO) 8.6 K/uL (4.3-11.0)
--- NOTE | 2018-10-01 22:22 | NUR ---
BELONGINGS TAKEN AND STORED AWAY FROM PATIENT. PT WANDED BY SECURITY.
[2018-10-01 22:25] LABS: CALCIUM, SERUM 8.8 mg/dL (8.5-10.1); POTASSIUM 3.7 mmol/L (3.5-5.1)
[2018-10-01 22:31] LABS: ALBUMIN 4.1 g/dL (3.4-5.0); BILIRUBIN,TOTAL 0.2 mg/dL (0.2-1.0); SALICYLATE 4.1 mg/dL (2.8-20.0); TOTAL PROTEIN, SERUM 7.8 g/dL (6.4-8.2)
--- NOTE | 2018-10-01 22:43 | NUR ---
URINE SENT TO STAT LAB
[2018-10-01 22:50] LABS: APPEARANCE,URINE Clear (CLEAR); BILIRUBIN,URINE Negative (NEGATIVE); BLOOD, URINE Trace-lysed Ery/uL (NEGATIVE); COLOR,URINE Yellow (YELLOW); KETONES,URINE Trace (NEGATIVE); LEUKOCYTE ESTERASE ,URINE Negative (NEGATIVE); NITRITE, URINE Negative (NEGATIVE); PROTEIN,URINE Negative (NEGATIVE); UGLUCOSE Negative (NEGATIVE); UROBILINOGEN,URINE 0.2 EU/dL (0.2)
--- NOTE | 2018-10-01 23:24 | NUR ---
Patient is resting comfortably in bed with eyes closed. Easily aroused. VSS
--- NOTE | 2018-10-01 23:53 | NUR ---
FOREST BIOMETRICS PROFESSOR MATHEW BURNETT FOR PSYCH EVAL.
[2018-10-02 00:02] LABS: BACTERIA,URINE Few /HPF (None Seen); RBC,URINE 0-2 /HPF (0-2); SQUAMOUS EPITHELIAL CELL,UR Rare /HPF (None Seen); WBC,URINE 0-2 /HPF (0-3)
--- NOTE | 2018-10-02 00:45 | NUR ---
PRIMARY SUBSTANCE ABUSE COUNSELOR Art at bedside for eval.
--- NOTE | 2018-10-02 01:50 | NUR ---
[facility] REPORT [phone] DENNY.
--- NOTE | 2018-10-02 02:01 | NUR ---
AMBULNZ: [id number] [facility] [id number]
--- NOTE | 2018-10-02 02:02 | NUR ---
REPORT GIVEN TO STACIA JONES FROM [facility].
--- NOTE | 2018-10-02 02:08 | NUR ---
Patient is resting comfortably in bed with eyes closed. Easily aroused. VSS. Able to make needs knows.
--- NOTE | 2018-10-02 04:48 | NUR ---
Patient is resting comfortably in bed with eyes closed. Easily aroused. VSS
--- NOTE | 2018-10-02 07:22 | NUR ---
REPORT RECEIVED FROM AKASH PALOMO FOR [facility]. PT IN BED AWAKE, AOX4, AMBULATORY W STEADY GAIT. SI OF RUNNING INTO TRAFFIC. HOOKED TO MONITOR. KEPT SAFE AND WARM.
--- NOTE | 2018-10-02 07:36 | NUR ---
BREAKFAST TRAY PROVIDED TO PT, TOLERATING PO WELL.
--- NOTE | 2018-10-02 08:02 | NUR ---
AMBULNZ UNIT CAME FOR [facility]ST [facility]ORTER. BP ELEVATED AT 152/99, MADE AWARE, ORDERED CLONIDINE 0.1MG PO. PT TOOK MEDICATION AND DECIDED NOT TO GO TO [facility]. MADE AWARE.
[2018-10-02] MEDS ORDERED: CLONIDINE HCL 0.1 MG TABLET ONE (08:13)
[2018-10-02 08:30] VITALS: BP 150/98
[2018-10-02] MEDS ORDERED: CLONIDINE HCL 0.1 MG TABLET PO ONE (08:30)
--- NOTE | 2018-10-02 08:36 | NUR ---
Patient given written and verbal discharge instructions. Patient verbalizes understanding of instructions. Patient is ambulatory with steady gait. Refuses offer of custodial placement. Patient given list of available shelters in surrounding area.
== END 2018-10-02 08:38 | disposition home or self-care (01) ==
LOC: ER 20:17
DX: R45.851 Suicidal ideations (principal); F17.200 Nicotine dependence, unspecified, uncomplicated; F10.10 Alcohol abuse, uncomplicated; Z59.0 Homelessness; Z79.899 Other long term (current) drug therapy; Y90.2 Blood alcohol level of 40-59 mg/100 ml
CPT/HCPCS: 36415; 80048-TC; 80076-TC; 80305; 81000-TC; 85025-TC; G0480

== ENCOUNTER 2019-01-23 13:29 | Emergency (ER) | payer MEDICAID ==
[~2019-01-23] VITALS: Ht 172.7 cm; Wt 83.9 kg
--- NOTE | 2019-01-23 13:55 | NUR ---
BIB SELF 53 YEAR OLD MALE +Suicidal ideation with plan to overdose Requesting medication refill. -HI, ALERT AND ORIENTED X3 BREATHING EVEN AND UNLABORED WITH NO DISTRESS NOTED. SKIN INTACT. ALL BELONGINGS PLACED IN LOCKER WITH NAME LABELS PLACED. WAITING TO BE SEEN BY
--- NOTE | 2019-01-23 14:00 | NUR ---
CALLED HOUSE SUP FOR SITTER.
--- NOTE | 2019-01-23 14:12 | NUR ---
URINE COLLECTED SENT TO LAB
[2019-01-23 14:28] LABS: BASOPHILS # (AUTO) 0.1 /CMM (0.0-0.2); EOSINOPHILS % (AUTO) 1.1 % (0.0-6.0); HEMATOCRIT 39 % (39-51); HEMOGLOBIN 12.7 g/dL (13.5-17.5); LYMPHOCYTES # (AUTO) 1.8 /CMM (0.8-4.8); LYMPHOCYTES % (AUTO) 25.7 % (20.0-44.0); MEAN CORPUSCULAR HGB CONC 33 g/dl (31.0-36.0); MEAN CORPUSCULAR VOLUME 83 fL (80-96); MONOCYTES # (AUTO) 0.7 /CMM (0.1-1.30); MONOCYTES % (AUTO) 10.1 % (2.0-12.0); NEUTROPHILS # (AUTO) 4.5 /CMM (1.8-8.9); NEUTROPHILS % (AUTO) 62.1 % (43.0-81.0); PLATELET COUNT (AUTO) 185 /CMM (150-450); WHITE BLOOD COUNT (AUTO) 7.2 K/uL (4.3-11.0)
[2019-01-23 14:31] LABS: APPEARANCE,URINE Clear (CLEAR); BILIRUBIN,URINE Negative (NEGATIVE); BLOOD, URINE Negative Ery/uL (NEGATIVE); COLOR,URINE Yellow (YELLOW); KETONES,URINE Negative (NEGATIVE); LEUKOCYTE ESTERASE ,URINE Negative (NEGATIVE); NITRITE, URINE Negative (NEGATIVE); PROTEIN,URINE Negative (NEGATIVE); UGLUCOSE Negative (NEGATIVE); UROBILINOGEN,URINE 0.2 EU/dL (0.2)
[2019-01-23 14:37] LABS: CALCIUM, SERUM 8.6 mg/dL (8.5-10.1); CARBON DIOXIDE 27 mmol/L (21-32); CHLORIDE 108 mmol/L (98-107); CREATININE 1.2 mg/dL (0.6-1.3); GLUCOSE 94 mg/dL (74-106); POTASSIUM 3.6 mmol/L (3.5-5.1); SODIUM SERUM 141 mmol/L (136-145); UREA NITROGEN, BLOOD 15 mg/dL (7-18)
--- NOTE | 2019-01-23 14:38 | NUR ---
FOOD AT BEDSIDE
[2019-01-23 14:41] LABS: ALANINE AMINOTRANSFERASE 18 U/L (12-78); ALBUMIN 3.8 g/dL (3.4-5.0); ALCOHOL, BLOOD < 3 mg/dL (0-0); ALKALINE PHOSPHATASE 92 U/L (46-116); ASPARTATE AMINOTRANSFERASE 14 U/L (15-37); BILIRUBIN,DIRECT 0.1 mg/dL (0.0-0.2); BILIRUBIN,TOTAL 0.3 mg/dL (0.2-1.0); TOTAL PROTEIN, SERUM 6.7 g/dL (6.4-8.2)
[2019-01-23 14:42] LABS: ACETAMINOPHEN 0 ug/ml (10-30); SALICYLATE 2.1 mg/dL (2.8-20.0)
--- NOTE | 2019-01-23 14:49 | NUR ---
ROZ WORKER AMANDA AT BEDSIDE
--- NOTE | 2019-01-23 15:06 | NUR ---
Social service consult requested by Dr. Solano for suicidal ideations with a plan to overdose on pills. Pt. is a 53 year old male who came to [facility] for voluntary psychiatric admission. SAÚL met with the pt. bedside. Pt. is alert and oriented x 4. Pt. appears dirty and disheveled. Pt. was eating during the assessment. Pt. states he is homeless and has been for the past 3 years. Prior to being homeless, pt. was residing at [facility]. Pt. left the facility due to "hearing voices." Pt. states he has a psychiatric diagnosis of Schizoaffective disorder. Pt. is currently not taking his psychiatric medications. Pt. has suicidal ideations with a plan to overdose on pill. Pt. is also hearing voices but denies visual hallucinations. Pt. is wanting voluntary psychiatric hospitalization at [facility]. Pt. has a history psychiatric hospitalizations. SAÚL contacted Alok at [facility] who informed that they do have beds available and to fax clinicals to .
--- NOTE | 2019-01-23 15:22 | NUR ---
Clinical referral packet faxed to .
--- NOTE | 2019-01-23 15:50 | NUR ---
PATIENT ASLEEP WITH NO DISTRESS. VSS ARE STABLE
--- NOTE | 2019-01-23 15:53 | NUR ---
SAÚL contacted intake at and spoke with Steven who informed SAÚL he received the clinicals and will be faxing them to nursing vat house supervisor at [facility]. SAÚL informed Steven pt. does not want to go to [place] or [facility]. SAÚL contacted Alok who confirmed with SAÚL they will have a bed for the pt. at [facility]. Addendum: 01/23/19 at 1557 by AMANDA HAYS SAÚL updated pt's STACIA Hauser with aforementioned information.
--- NOTE | 2019-01-23 16:05 | NUR ---
AMANDA CALLED STATED PATIENT WILL BE GOING TO [facility]. WAITING FOR CALL BACK AND BED FROM FACILITY
--- NOTE | 2019-01-23 17:08 | NUR ---
REPORT GIVEN TO STACIA DINERO.
--- NOTE | 2019-01-23 17:20 | NUR ---
CALLED TRANSPORT -->TO [facility] [phone] REF # [id number] ADMITTING [phone]. THEY WILL CALL US WITH AN ETA
--- NOTE | 2019-01-23 17:21 | NUR ---
DINNER TRAY AT BEDSIDE
--- NOTE | 2019-01-23 18:00 | NUR ---
[facility]
--- NOTE | 2019-01-23 18:33 | NUR ---
[facility]t transportation is at bedside to take patient to [place]
[2019-01-23] MEDS ORDERED: CLONIDINE HCL 0.1 MG TABLET ONE (18:44)
--- NOTE | 2019-01-23 18:46 | NUR ---
b/p elevated per emt not able to take patient. made aware. b/p ordered, emt will wait 15-20 mins. will recheck b/p
[2019-01-23] MEDS ORDERED: CLONIDINE HCL 0.1 MG TABLET PO ONE (19:00)
--- NOTE | 2019-01-23 19:03 | NUR ---
rechecked b/p [id number]
[2019-01-23 19:05] VITALS: BP 151/96
== END 2019-01-23 19:05 ==
LOC: ER 13:29
DX: F20.9 Schizophrenia, unspecified (principal); R45.851 Suicidal ideations; F31.9 Bipolar disorder, unspecified; F10.10 Alcohol abuse, uncomplicated; F17.200 Nicotine dependence, unspecified, uncomplicated; Y90.0 Blood alcohol level of less than 20 mg/100 ml; Z59.0 Homelessness; Z79.899 Other long term (current) drug therapy
CPT/HCPCS: 36415; 80048; 80076; 80305; 80307; 80329; 81001; 85025; 99285; G0480; 81000-TC

== ENCOUNTER 2019-02-02 12:18 | Emergency (ER) | payer MEDICAID ==
[~2019-02-02] VITALS: Ht 180.3 cm; Wt 117.5 kg
[2019-02-02 12:55] LABS: BASOPHILS % (AUTO) 0.5 % (0.0-2.0); EOSINOPHILS % (AUTO) 2.5 % (0.0-6.0); HEMATOCRIT 42 % (39-51); HEMOGLOBIN 13.5 g/dL (13.5-17.5); LYMPHOCYTES # (AUTO) 1.7 /CMM (0.8-4.8); LYMPHOCYTES % (AUTO) 27.4 % (20.0-44.0); MEAN CORPUSCULAR HGB CONC 33 g/dl (31.0-36.0); MEAN CORPUSCULAR VOLUME 83 fL (80-96); MONOCYTES # (AUTO) 0.8 /CMM (0.1-1.30); MONOCYTES % (AUTO) 13.3 % (2.0-12.0); NEUTROPHILS # (AUTO) 3.4 /CMM (1.8-8.9); NEUTROPHILS % (AUTO) 56.3 % (43.0-81.0); PLATELET COUNT (AUTO) 163 /CMM (150-450); WHITE BLOOD COUNT (AUTO) 6.1 K/uL (4.3-11.0)
[2019-02-02 13:00] LABS: APPEARANCE,URINE Clear (CLEAR); BILIRUBIN,URINE Negative (NEGATIVE); BLOOD, URINE Negative Ery/uL (NEGATIVE); COLOR,URINE Yellow (YELLOW); KETONES,URINE Negative (NEGATIVE); LEUKOCYTE ESTERASE ,URINE Negative (NEGATIVE); NITRITE, URINE Negative (NEGATIVE); PH,URINE 5.5 (5.0-8.0); PROTEIN,URINE Negative (NEGATIVE); UGLUCOSE Negative (NEGATIVE); UROBILINOGEN,URINE 0.2 EU/dL (0.2)
[2019-02-02 13:06] LABS: CALCIUM, SERUM 8.7 mg/dL (8.5-10.1); CARBON DIOXIDE 24 mmol/L (21-32); CHLORIDE 108 mmol/L (98-107); CREATININE 1.1 mg/dL (0.6-1.3); GLUCOSE 133 mg/dL (74-106); POTASSIUM 3.6 mmol/L (3.5-5.1); SODIUM SERUM 141 mmol/L (136-145); UREA NITROGEN, BLOOD 22 mg/dL (7-18)
[2019-02-02 13:18] LABS: ALANINE AMINOTRANSFERASE 20 U/L (12-78); ALBUMIN 3.7 g/dL (3.4-5.0); ALCOHOL, BLOOD < 3 mg/dL (0-0); ALKALINE PHOSPHATASE 102 U/L (46-116); ASPARTATE AMINOTRANSFERASE 22 U/L (15-37); BILIRUBIN,DIRECT 0.1 mg/dL (0.0-0.2); BILIRUBIN,TOTAL 0.2 mg/dL (0.2-1.0)
[2019-02-02 13:19] LABS: ACETAMINOPHEN 0 ug/ml (10-30); SALICYLATE 2.2 mg/dL (2.8-20.0)
[2019-02-02 13:46] VITALS: BP 140/87
--- NOTE | 2019-02-02 13:49 | NUR ---
Patient discharged to home in stable condition. Written and verbal after care instructions given. Patient verbalizes understanding of instruction. Patient provided resource, signed waiver, food and tap card provided. Patient denies SI/HI. Denies any pain at this time. Addendum: 02/02/19 at 1350 by DEMETRIA pt homeless.
--- NOTE | 2019-02-02 13:50 | NUR ---
Patient given written and verbal discharge instructions. Patient verbalizes understanding of instructions. Patient is ambulatory with steady gait. Refuses offer of skilled nursing placement. Patient given list of available shelters in surrounding area.
== END 2019-02-02 13:46 | disposition home or self-care (01) ==
LOC: ER 12:23
DX: F32.9 Major depressive disorder, single episode, unspecified (principal); F20.9 Schizophrenia, unspecified; F17.200 Nicotine dependence, unspecified, uncomplicated; Z59.0 Homelessness; Z79.899 Other long term (current) drug therapy
CPT/HCPCS: 36415; 80048; 80076; 80305; 80307; 80329; 81001; 85025; 99284; G0480; 81000-TC

== ENCOUNTER 2019-02-16 10:16 | Emergency (ER) | payer MEDICAID ==
[~2019-02-16] VITALS: Ht 180.3 cm; Wt 117.9 kg
--- NOTE | 2019-02-16 10:30 | NUR ---
SECURITY AT BEDSIDE FOR WANDING. BELONGINGS PLACED IN SAFE LOCKER.
--- NOTE | 2019-02-16 10:32 | NUR ---
1:1 SITTER AT BEDSIDE.
--- NOTE | 2019-02-16 10:33 | NUR ---
DR VALENCIA AT BEDSIDE FOR EVAL.
--- NOTE | 2019-02-16 10:38 | NUR ---
SANIPRACTIC PHYSICIAN AT BEDSIDE FOR BLOOD DRAW.
[2019-02-16 10:43] LABS: BASOPHILS # (AUTO) 0.1 /CMM (0.0-0.2); HEMOGLOBIN 13.4 g/dL (13.5-17.5); NEUTROPHILS # (AUTO) 3.8 /CMM (1.8-8.9); RED BLOOD CELL COUNT(AUTO) 4.91 MIL/uL (4.5-6.0); WHITE BLOOD COUNT (AUTO) 6.6 K/uL (4.3-11.0)
[2019-02-16 10:46] LABS: HEMATOCRIT 41 % (39-51); LYMPHOCYTES % (AUTO) 30.5 % (20.0-44.0); MEAN CORPUSCULAR HGB CONC 33 g/dl (31.0-36.0); MEAN CORPUSCULAR VOLUME 83 fL (80-96); MONOCYTES # (AUTO) 0.6 /CMM (0.1-1.30); MONOCYTES % (AUTO) 9.3 % (2.0-12.0); NEUTROPHILS % (AUTO) 57.2 % (43.0-81.0); PLATELET COUNT (AUTO) 188 /CMM (150-450)
[2019-02-16 11:01] LABS: APPEARANCE,URINE Clear (CLEAR); BILIRUBIN,URINE Negative (NEGATIVE); BLOOD, URINE Negative Ery/uL (NEGATIVE); COLOR,URINE Yellow (YELLOW); KETONES,URINE Negative (NEGATIVE); LEUKOCYTE ESTERASE ,URINE Negative (NEGATIVE); NITRITE, URINE Negative (NEGATIVE); PROTEIN,URINE Negative (NEGATIVE); UGLUCOSE Negative (NEGATIVE); UROBILINOGEN,URINE 0.2 EU/dL (0.2)
--- NOTE | 2019-02-16 11:05 | NUR ---
FOUNDER PRESIDENT AND CEO AMANDA AT BEDSIDE
[2019-02-16 11:09] LABS: ALANINE AMINOTRANSFERASE 24 U/L (12-78); ALCOHOL, BLOOD < 3 mg/dL (0-0); ALKALINE PHOSPHATASE 99 U/L (46-116); ASPARTATE AMINOTRANSFERASE 21 U/L (15-37); BILIRUBIN,DIRECT 0.1 mg/dL (0.0-0.2); BILIRUBIN,TOTAL 0.3 mg/dL (0.2-1.0); CALCIUM, SERUM 9.2 mg/dL (8.5-10.1); CARBON DIOXIDE 26 mmol/L (21-32); CHLORIDE 106 mmol/L (98-107); CREATININE 1.1 mg/dL (0.6-1.3); GLUCOSE 94 mg/dL (74-106); SALICYLATE 3.3 mg/dL (2.8-20.0); SODIUM SERUM 142 mmol/L (136-145); TOTAL PROTEIN, SERUM 7.4 g/dL (6.4-8.2); UREA NITROGEN, BLOOD 13 mg/dL (7-18)
[2019-02-16 11:10] LABS: ACETAMINOPHEN < 10 ug/ml (10-30)
--- NOTE | 2019-02-16 11:42 | NUR ---
Social service consult requested by Dr. Gardiner for voluntary psychiatric admission. Pt. is a 53 year old male who came to [facility] complaining of Depression and suicidal ideations with a plan to overdose. SAÚL met with the pt. bedside. Pt. is alert and oriented x 4. SAÚL is familiar with the pt. from previous ED visits for the same reason. Pt. is homeless and has been for a "long time." Pt. receives $900/month in SSDI. Pt. has a FSP hide splitter through [facility]. Pt. has a psychiatric diagnosis of Bipolar and Depression. Pt. is currently non-compliant with his medications. Pt. is seeking voluntary psychiatric hospitalization at [facility]. Pt. was last admitted to [facility] in late December. Pt. smokes 9 cigarettes per day. Pt. drinks up to 4 cans of 24oz of beer daily. Pt. denies any drug use. SAÚL was informed by Juaquin in ED that he did contact [facility] and was informed they will have a bed for the pt at the [place] location.
--- NOTE | 2019-02-16 13:39 | NUR ---
CALLED [facility]. SPOKE TO GORDY. NO AVAILABLE BED AT THIS TIME.
--- NOTE | 2019-02-16 14:11 | NUR ---
PER [facility] INTAKE, THEY ARE SENDING LABS TO [facility]
--- NOTE | 2019-02-16 18:18 | NUR ---
accepted to [facility] number for report [phone] x [phone] meagan manley md: jaime
[2019-02-16 18:45] VITALS: BP 141/77
--- NOTE | 2019-02-16 19:10 | NUR ---
tried to give report to [facility]. was told to call in 30 mins. report given to cnc machinist 2nd shift charge nurse bertrand for charlee.
--- NOTE | 2019-02-16 20:33 | NUR ---
[facility] CHEN [id number] TRIP#[id number]
--- NOTE | 2019-02-16 22:26 | NUR ---
report given to peggy navarro. PT ASSIGNED TO 15B
== END 2019-02-16 23:48 | disposition short-term general hospital (02) ==
LOC: ER 10:16
DX: F32.9 Major depressive disorder, single episode, unspecified (principal); R45.851 Suicidal ideations; F20.9 Schizophrenia, unspecified; F17.200 Nicotine dependence, unspecified, uncomplicated; Z59.0 Homelessness; Z88.8 Allergy status to other drugs, medicaments and biological substances
CPT/HCPCS: 36415; 80048; 80076; 80305; 80307; 80329; 81001; 85025; 99285; G0480; 81000-TC

== ENCOUNTER 2019-04-10 15:42 | Emergency (ER) | payer MEDICAID ==
[~2019-04-10] VITALS: Ht 182.9 cm; Wt 136.1 kg
--- NOTE | 2019-04-10 16:00 | NUR ---
Called NO response
--- NOTE | 2019-04-10 16:10 | NUR ---
PT WENT TO ER 13 AND AMBULATED WITH A STEADY GAIT. PT HAS 4 BAGS OF BELONGINGS THAT WERE REMOVED AND PLACED IN THE LOCKER. PT WAS PLACED IN A GOWN AND GIVEN WARM BLANKETS.
[2019-04-10 16:37] LABS: BASOPHILS # (AUTO) 0.1 /CMM (0.0-0.2); BASOPHILS % (AUTO) 1.2 % (0.0-2.0); HEMATOCRIT 41 % (39-51); HEMOGLOBIN 13.6 g/dL (13.5-17.5); LYMPHOCYTES # (AUTO) 2.4 /CMM (0.8-4.8); LYMPHOCYTES % (AUTO) 27.6 % (20.0-44.0); MEAN CORPUSCULAR HGB CONC 33 g/dl (31.0-36.0); MEAN CORPUSCULAR VOLUME 83 fL (80-96); MONOCYTES # (AUTO) 1.1 /CMM (0.1-1.30); MONOCYTES % (AUTO) 12.1 % (2.0-12.0); NEUTROPHILS # (AUTO) 4.9 /CMM (1.8-8.9); NEUTROPHILS % (AUTO) 57.1 % (43.0-81.0); PLATELET COUNT (AUTO) 191 /CMM (150-450); RED BLOOD CELL COUNT(AUTO) 4.95 MIL/uL (4.5-6.0); WHITE BLOOD COUNT (AUTO) 8.7 K/uL (4.3-11.0)
[2019-04-10 17:09] LABS: CALCIUM, SERUM 9.2 mg/dL (8.5-10.1); CARBON DIOXIDE 27 mmol/L (21-32); CHLORIDE 105 mmol/L (98-107); CREATININE 1.2 mg/dL (0.6-1.3); GLUCOSE 91 mg/dL (74-106); POTASSIUM 3.7 mmol/L (3.5-5.1); SODIUM SERUM 143 mmol/L (136-145); UREA NITROGEN, BLOOD 12 mg/dL (7-18)
[2019-04-10 17:13] LABS: ALCOHOL, BLOOD < 3 mg/dL (0-0); SALICYLATE 3.4 mg/dL (2.8-20.0)
[2019-04-10 17:14] LABS: ACETAMINOPHEN 0 ug/ml (10-30)
--- NOTE | 2019-04-10 18:15 | NUR ---
CALLED SALESPERSON FLOWERS JAVIER FOR EVAL. ETA 1 HOUR.
--- NOTE | 2019-04-10 18:30 | NUR ---
OLEKSANDR VELARDE CALLED FOR EVAL PER DR ALVAREZ
--- NOTE | 2019-04-10 19:26 | NUR ---
PRACHI HERRERA IS REVIEWING PT'S CHART.
--- NOTE | 2019-04-10 19:30 | NUR ---
PT AMBULATED OUTSIDE WITH THE SITTER, TO HAVE A SMOKE.
--- NOTE | 2019-04-10 19:37 | NUR ---
PT AMBULATED TO ER 13 WITH A STEADY GAIT.
[2019-04-10] MEDS ORDERED: AMLODIPINE BESYLATE 5 MG TABLET ONE (21:37)
[2019-04-10] MEDS ORDERED: AMLODIPINE BESYLATE 5 MG TABLET PO ONE (22:00)
--- NOTE | 2019-04-10 22:20 | NUR ---
PT AMBULATED TO THE [place] TO USE THE VENDING MACHINE. SITTER AND SECURITY WENT WITH PT.
--- NOTE | 2019-04-10 22:30 | NUR ---
PT WANTED TO GO OUT FOR A SMOKE. PT'S BP WAS TAKEN AND BP IS ELEVATED. PT WAS TOLD TO REST IN BED WHILE THE MEDICATION HE REC'D TAKES EFFECT.
[2019-04-10 23:46] VITALS: BP 139/85
--- NOTE | 2019-04-10 23:46 | NUR ---
PT'S BP IS WNL.
--- NOTE | 2019-04-11 00:03 | NUR ---
Pt accepted to [facility] by Dr Hyde. Room 315-B. # for report [phone]
--- NOTE | 2019-04-11 00:17 | NUR ---
[facility] Called for transport. ETA 1.5 hrs
--- NOTE | 2019-04-11 01:18 | NUR ---
Report given to Sammi PALOMO for continuation of care.
--- NOTE | 2019-04-11 01:24 | NUR ---
[facility] ambulance at bedside for transport to [facility]
== END 2019-04-11 01:25 ==
LOC: ER 15:53
DX: R45.851 Suicidal ideations (principal); F32.9 Major depressive disorder, single episode, unspecified; F20.9 Schizophrenia, unspecified; F17.200 Nicotine dependence, unspecified, uncomplicated; Z59.0 Homelessness; Z79.899 Other long term (current) drug therapy
CPT/HCPCS: 36415; 80048; 80305; 80307; 80329; 85025; 93005; 99285; 99406; G0480

== ENCOUNTER 2021-01-13 22:22 | Emergency (ER) | payer MEDICAID ==
[~2021-01-13] VITALS: Ht 180.3 cm; Wt 74.4 kg
[2021-01-14] MEDS ORDERED: IBUPROFEN 400 MG TABLET ONE
--- NOTE | 2021-01-14 00:20 | NUR ---
PT AAOX4. BIBSELF C/O SI WITH PLAN TO OD ON MEDICATIONS. REQUESTING TO BE SENT TO [facility].
[2021-01-14 00:27] LABS: BASOPHILS # (AUTO) 0.1 K/uL (0.0-0.2); BASOPHILS % (AUTO) 0.8 % (0.0-2.0); EOSINOPHILS % (AUTO) 2.3 % (0.0-6.0); HEMATOCRIT 38 % (39-51); HEMOGLOBIN 12.2 g/dL (13.5-17.5); LYMPHOCYTES # (AUTO) 1.8 K/uL (0.8-4.8); MEAN CORPUSCULAR HGB CONC 32 g/dl (31.0-36.0); MEAN CORPUSCULAR VOLUME 84 fL (80-96); MONOCYTES # (AUTO) 0.6 K/uL (0.1-1.30); NEUTROPHILS # (AUTO) 4.5 K/uL (1.8-8.9); NEUTROPHILS % (AUTO) 62.9 % (43.0-81.0); PLATELET COUNT (AUTO) 233 K/uL (150-450); RED BLOOD CELL COUNT(AUTO) 4.51 MIL/uL (4.5-6.0); WHITE BLOOD COUNT (AUTO) 7.1 K/uL (4.3-11.0)
[2021-01-14 00:29] LABS: BILIRUBIN,URINE Negative (NEGATIVE); COLOR,URINE YELLOW (YELLOW); LEUKOCYTE ESTERASE ,URINE Negative (NEGATIVE); NITRITE, URINE Negative (NEGATIVE); PROTEIN,URINE Negative (NEGATIVE); UGLUCOSE Negative (NEGATIVE); UROBILINOGEN,URINE 0.2 EU/dL (0.2)
[2021-01-14 00:37] LABS: CALCIUM, SERUM 8.7 mg/dL (8.5-10.1); CARBON DIOXIDE 30 mmol/L (21-32); CHLORIDE 105 mmol/L (98-107); GLUCOSE 81 mg/dL (74-106); POTASSIUM 4.2 mmol/L (3.5-5.1); SODIUM SERUM 141 mmol/L (136-145); UREA NITROGEN, BLOOD 26 mg/dL (7-18)
[2021-01-14 00:43] LABS: ACETAMINOPHEN < 2 ug/ml (10-30); ALANINE AMINOTRANSFERASE 65 U/L (12-78); ALBUMIN 3.9 g/dL (3.4-5.0); ALCOHOL, BLOOD < 3 mg/dL (0-0); ALKALINE PHOSPHATASE 123 U/L (46-116); ASPARTATE AMINOTRANSFERASE 53 U/L (15-37); BILIRUBIN,DIRECT 0.1 mg/dL (0.0-0.2); BILIRUBIN,TOTAL 0.2 mg/dL (0.2-1.0); TOTAL PROTEIN, SERUM 7.4 g/dL (6.4-8.2)
--- NOTE | 2021-01-14 01:26 | NUR ---
FACESHEET AND CLINICALS FAXED TO [facility].
--- NOTE | 2021-01-14 04:20 | NUR ---
patient is awake. Patient is breathing evenly and unlabored on room air. Vital signs are stable. sitter at bedside. will continue to monitor patient.
[2021-01-14 05:30] VITALS: BP 145/71
--- NOTE | 2021-01-14 08:16 | NUR ---
FAXED CPV[facility] RESULTS TO [facility]
--- NOTE | 2021-01-14 09:56 | NUR ---
Patient eloped from facility. Dr. Brooks notified.
== END 2021-01-14 09:58 | disposition left against medical advice (07) ==
LOC: ER 22:38
DX: R45.851 Suicidal ideations (principal); F15.10 Other stimulant abuse, uncomplicated; Z20.822 Contact with and (suspected) exposure to COVID-19; Z88.0 Allergy status to penicillin; F31.9 Bipolar disorder, unspecified; Z59.00 Homelessness unspecified; Z53.29 Procedure and treatment not carried out because of patient's decision for other reasons
CPT/HCPCS: 36415; 80048; 80076; 80143; 80307; 80320; 81003; 85025; 87426; 99285; C9803; G0480

== ENCOUNTER 2022-09-03 06:42 | Emergency (ER) | payer MEDICAID ==
[~2022-09-03] VITALS: Ht 170.2 cm; Wt 78.0 kg
--- NOTE | 2022-09-03 07:46 | NUR ---
COVID SWAB COLLECTED AND SENT TO LAB.
--- NOTE | 2022-09-03 07:47 | NUR ---
SECURITY AT BEDSIDE FOR WANDING AND BELONGINGS ISOLATION
--- NOTE | 2022-09-03 07:47 | NUR ---
URINE SAMPLE COLLECTED AND SENT TO LAB
[2022-09-03 08:19] LABS: BASOPHILS % (AUTO) 0.8 % (0.0-2.0); EOSINOPHILS % (AUTO) 1.7 % (0.0-6.0); HEMATOCRIT 43 % (39-51); HEMOGLOBIN 13.8 g/dL (13.5-17.5); LYMPHOCYTES # (AUTO) 1.8 K/uL (0.8-4.8); LYMPHOCYTES % (AUTO) 38.7 % (20.0-44.0); MEAN CORPUSCULAR HGB CONC 33 g/dl (31.0-36.0); MEAN CORPUSCULAR VOLUME 79 fL (80-96); MONOCYTES # (AUTO) 0.6 K/uL (0.1-1.30); MONOCYTES % (AUTO) 12.6 % (2.0-12.0); NEUTROPHILS # (AUTO) 2.2 K/uL (1.8-8.9); NEUTROPHILS % (AUTO) 46.2 % (43.0-81.0); PLATELET COUNT (AUTO) 198 K/uL (150-450); RED BLOOD CELL COUNT(AUTO) 5.41 MIL/uL (4.5-6.0); WHITE BLOOD COUNT (AUTO) 4.7 K/uL (4.3-11.0)
[2022-09-03 08:27] LABS: CALCIUM, SERUM 9.7 mg/dL (8.5-10.1); CARBON DIOXIDE 32 mmol/L (21-32); CHLORIDE 104 mmol/L (98-107); GLUCOSE 92 mg/dL (74-106); POTASSIUM 3.2 mmol/L (3.5-5.1); SODIUM SERUM 142 mmol/L (136-145); UREA NITROGEN, BLOOD 11 mg/dL (7-18)
[2022-09-03] MEDS ORDERED: AMLODIPINE BESYLATE 5 MG TABLET PO ONE (08:30)
[2022-09-03 08:32] LABS: ALANINE AMINOTRANSFERASE 23 U/L (12-78); ALBUMIN 3.8 g/dL (3.4-5.0); ALKALINE PHOSPHATASE 107 U/L (46-116); ASPARTATE AMINOTRANSFERASE 18 U/L (15-37); BILIRUBIN,DIRECT 0.1 mg/dL (0.0-0.2); BILIRUBIN,TOTAL 0.5 mg/dL (0.2-1.0); TOTAL PROTEIN, SERUM 7.4 g/dL (6.4-8.2)
[2022-09-03 08:39] LABS: ALCOHOL, BLOOD < 3 mg/dL (0-10)
[2022-09-03] MEDS ORDERED: AMLODIPINE BESYLATE 5 MG TABLET ONE (08:47)
--- NOTE | 2022-09-03 11:16 | NUR ---
INDIAN TRADER saw the patient who was on the floor in the ER. Pt. is going to [facility]. Preparing the packet.
[2022-09-03 11:19] LABS: BILIRUBIN,URINE NEGATIVE (NEGATIVE); COLOR,URINE YELLOW (YELLOW); LEUKOCYTE ESTERASE ,URINE NEGATIVE (NEGATIVE); NITRITE, URINE NEGATIVE (NEGATIVE); PH,URINE 6.5 (5.0-8.0); PROTEIN,URINE NEGATIVE (NEGATIVE); UGLUCOSE NEGATIVE (NEGATIVE); UROBILINOGEN,URINE 0.2 EU/dL (0.2)
--- NOTE | 2022-09-03 13:24 | NUR ---
This promotion writer send the packet to Con at [facility]. Packet recevied.
[2022-09-03 13:30] VITALS: BP 156/87
--- NOTE | 2022-09-03 13:34 | NUR ---
The patient is accepted to [facility]. Alok will call back in 20 minutes with the details.
--- NOTE | 2022-09-03 14:57 | NUR ---
Per Alok the pt is accepted to [facility]. ETA 2 minutes. Perorted to ER to have them call [phone] to report on the patient.
== END 2022-09-03 15:49 ==
LOC: ER 06:45
DX: R45.851 Suicidal ideations (principal); F15.10 Other stimulant abuse, uncomplicated; I10 Essential (primary) hypertension; F20.9 Schizophrenia, unspecified; F31.9 Bipolar disorder, unspecified; Z88.0 Allergy status to penicillin; F17.200 Nicotine dependence, unspecified, uncomplicated; Z59.00 Homelessness unspecified; Z20.822 Contact with and (suspected) exposure to COVID-19
CPT/HCPCS: 99285; 93005; 85025; 80048; 80076; 81003; 36415; 84484; 87426; 80143; 80320; 80307; C9803; G0480

== ENCOUNTER 2023-12-28 06:43 | Emergency (ER) | payer OTHER ==
[~2023-12-28] VITALS: Ht 175.3 cm; Wt 95.3 kg
[2023-12-28 07:31] LABS: BASOPHILS % (AUTO) 0.7 % (0.0-2.0); EOSINOPHILS # (AUTO) 0.2 K/uL (0.0-0.7); EOSINOPHILS % (AUTO) 2.4 % (0.0-6.0); HEMATOCRIT 42 % (39-51); HEMOGLOBIN 13.6 g/dL (13.5-17.5); LYMPHOCYTES # (AUTO) 2.1 K/uL (0.8-4.8); LYMPHOCYTES % (AUTO) 33.3 % (20.0-44.0); MEAN CORPUSCULAR HEMOGLOBIN 27 PG (26.0-33.0); MEAN CORPUSCULAR HGB CONC 33 g/dl (31.0-36.0); MEAN CORPUSCULAR VOLUME 82 fL (80-96); MONOCYTES # (AUTO) 0.9 K/uL (0.1-1.30); MONOCYTES % (AUTO) 14.6 % (2.0-12.0); NEUTROPHILS # (AUTO) 3.1 K/uL (1.8-8.9); PLATELET COUNT (AUTO) 183 K/uL (150-450); RED BLOOD CELL COUNT(AUTO) 5.08 MIL/uL (4.5-6.0); RED CELL DISTRIBUTION WIDTH 14.1 % (11.5-15.0); WHITE BLOOD COUNT (AUTO) 6.3 K/uL (4.3-11.0)
[2023-12-28 07:32] LABS: APPEARANCE,URINE CLEAR (CLEAR); BILIRUBIN,URINE NEGATIVE (NEGATIVE); BLOOD, URINE NEGATIVE Ery/uL (NEGATIVE); COLOR,URINE YELLOW (YELLOW); KETONES,URINE NEGATIVE (NEGATIVE); LEUKOCYTE ESTERASE ,URINE NEGATIVE (NEGATIVE); NITRITE, URINE NEGATIVE (NEGATIVE); PROTEIN,URINE NEGATIVE (NEGATIVE); UGLUCOSE NEGATIVE (NEGATIVE)
[2023-12-28 07:40] LABS: CALCIUM, SERUM 9.1 mg/dL (8.5-10.1); CARBON DIOXIDE 29 mmol/L (21-32); CHLORIDE 107 mmol/L (98-107); CREATININE 1.1 mg/dL (0.6-1.3); POTASSIUM 3.3 mmol/L (3.5-5.1); SODIUM SERUM 142 mmol/L (136-145); UREA NITROGEN, BLOOD 17 mg/dL (7-18)
[2023-12-28 07:46] LABS: AMPHETAMINE, URINE POSITIVE (NEGATIVE); BARBITURATE, URINE NEGATIVE (NEGATIVE); BENZODIAZEPINE, URINE NEGATIVE (NEGATIVE); CANNABINOID, URINE NEGATIVE (NEGATIVE); COCCAINE, URINE NEGATIVE (NEGATIVE); OPIATE, URINE NEGATIVE (NEGATIVE); PHENCYCLIDINE SCREEN,URINE NEGATIVE (NEGATIVE)
[2023-12-28 07:57] LABS: ALANINE AMINOTRANSFERASE 22 U/L (12-78); ALBUMIN 3.9 g/dL (3.4-5.0); ALKALINE PHOSPHATASE 135 U/L (46-116); ASPARTATE AMINOTRANSFERASE 19 U/L (15-37); BILIRUBIN,DIRECT 0.1 mg/dL (0.0-0.2); BILIRUBIN,TOTAL 0.2 mg/dL (0.2-1.0); SALICYLATE 2.8 mg/dL (2.8-20.0); TOTAL PROTEIN, SERUM 7.7 g/dL (6.4-8.2)
[2023-12-28 08:00] LABS: ACETAMINOPHEN 0 ug/ml (10-30); ALCOHOL, BLOOD < 3 mg/dL (0-10); GLUCOSE 48 mg/dL (74-106)
[2023-12-28 09:17] LABS: ADD URINE CULTURE NO; BACTERIA,URINE None seen /HPF (None Seen); RBC,URINE NONE SEEN /HPF (0-2); SQUAMOUS EPITHELIAL CELL,UR None Seen /HPF (None Seen); WBC,URINE NONE SEEN /HPF (0-3)
[2023-12-28] MEDS ORDERED: POTASSIUM CHLORIDE 20 MEQ TAB.PRT.SR PO ONE (09:26)
[2023-12-28] MEDS: POTASSIUM CHLORIDE 20 MEQ TAB.PRT.SR PO ONE (09:29)
[2023-12-28 14:52] VITALS: BP 138/79; TEMP 98.5; O2SAT 98
== END 2023-12-28 14:53 ==
LOC: ER 06:49
DX: R45.851 Suicidal ideations (principal); I10 Essential (primary) hypertension; F32.A Depression, unspecified; F20.9 Schizophrenia, unspecified; E16.2 Hypoglycemia, unspecified; E87.6 Hypokalemia; F19.10 Other psychoactive substance abuse, uncomplicated; F17.200 Nicotine dependence, unspecified, uncomplicated; Z59.00 Homelessness unspecified; Z79.899 Other long term (current) drug therapy; Z88.0 Allergy status to penicillin; Z60.2 Problems related to living alone; Z20.822 Contact with and (suspected) exposure to COVID-19
CPT/HCPCS: 36415; 80048-TC; 80076-TC; 81001; 82962-TC; 85025-TC; 98960; G0480

== ENCOUNTER 2024-04-13 17:56 | Emergency (ER) | payer OTHER ==
[~2024-04-13] VITALS: Ht 180.3 cm; Wt 99.8 kg
[2024-04-13 18:49] LABS: BASOPHILS % (AUTO) 0.5 % (0.0-2.0); EOSINOPHILS # (AUTO) 0.1 K/uL (0.0-0.7); EOSINOPHILS % (AUTO) 1.1 % (0.0-6.0); HEMATOCRIT 36 % (39-51); HEMOGLOBIN 11.7 g/dL (13.5-17.5); LYMPHOCYTES # (AUTO) 1.7 K/uL (0.8-4.8); LYMPHOCYTES % (AUTO) 24.8 % (20.0-44.0); MEAN CORPUSCULAR HEMOGLOBIN 27 PG (26.0-33.0); MEAN CORPUSCULAR HGB CONC 33 g/dl (31.0-36.0); MEAN CORPUSCULAR VOLUME 83 fL (80-96); MONOCYTES # (AUTO) 0.8 K/uL (0.1-1.30); MONOCYTES % (AUTO) 12.3 % (2.0-12.0); NEUTROPHILS # (AUTO) 4.1 K/uL (1.8-8.9); NEUTROPHILS % (AUTO) 61.3 % (43.0-81.0); PLATELET COUNT (AUTO) 311 K/uL (150-450); RED BLOOD CELL COUNT(AUTO) 4.27 MIL/uL (4.5-6.0); RED CELL DISTRIBUTION WIDTH 17.3 % (11.5-15.0); WHITE BLOOD COUNT (AUTO) 6.7 K/uL (4.3-11.0)
[2024-04-13 18:57] LABS: APPEARANCE,URINE Clear (CLEAR); BILIRUBIN,URINE SMALL (NEGATIVE); BLOOD, URINE Negative Ery/uL (NEGATIVE); COLOR,URINE YELLOW (YELLOW); KETONES,URINE 15 mg/dL (NEGATIVE); LEUKOCYTE ESTERASE ,URINE Negative (NEGATIVE); NITRITE, URINE Negative (NEGATIVE); PROTEIN,URINE 30 mg/dl (NEGATIVE); UGLUCOSE Negative (NEGATIVE)
[2024-04-13 18:59] LABS: RBC,URINE 0-2 /HPF (0-2); WBC,URINE 0-2 /HPF (0-3)
[2024-04-13 19:00] LABS: ADD URINE CULTURE NO; BACTERIA,URINE None seen /HPF (None Seen); CALCIUM OXALATE CRYSTALS,UR Rare /HPF (None Seen); SQUAMOUS EPITHELIAL CELL,UR None Seen /HPF (None Seen)
[2024-04-13 19:03] LABS: ACETAMINOPHEN <10 ug/ml (10-30); ALANINE AMINOTRANSFERASE 22 U/L (12-78); ALBUMIN 3.7 g/dL (3.4-5.0); ALCOHOL, BLOOD < 3 mg/dL (0-10); ALKALINE PHOSPHATASE 124 U/L (46-116); ASPARTATE AMINOTRANSFERASE 17 U/L (15-37); BILIRUBIN,DIRECT 0.1 mg/dL (0.0-0.2); BILIRUBIN,TOTAL 0.4 mg/dL (0.2-1.0); CALCIUM, SERUM 9.2 mg/dL (8.5-10.1); CARBON DIOXIDE 31 mmol/L (21-32); CHLORIDE 105 mmol/L (98-107); CREATININE 1.5 mg/dL (0.6-1.3); GLUCOSE 78 mg/dL (74-106); POTASSIUM 3.4 mmol/L (3.5-5.1); SODIUM SERUM 142 mmol/L (136-145); UREA NITROGEN, BLOOD 20 mg/dL (7-18)
[2024-04-13 19:05] LABS: AMPHETAMINE, URINE POSITIVE (NEGATIVE); BARBITURATE, URINE NEGATIVE (NEGATIVE); BENZODIAZEPINE, URINE NEGATIVE (NEGATIVE); CANNABINOID, URINE NEGATIVE (NEGATIVE); COCCAINE, URINE NEGATIVE (NEGATIVE); OPIATE, URINE NEGATIVE (NEGATIVE); PHENCYCLIDINE SCREEN,URINE NEGATIVE (NEGATIVE)
[2024-04-13] MEDS ORDERED: AMLODIPINE BESYLATE 10 MG TABLET ONE (19:48)
[2024-04-13] MEDS: AMLODIPINE BESYLATE 5 MG TABLET PO ONE (19:49)
[2024-04-13 23:54] VITALS: BP 141/78; TEMP 98.2; O2SAT 99
== END 2024-04-13 23:54 | disposition home or self-care (01) ==
LOC: ER 18:01
DX: R45.851 Suicidal ideations (principal); F15.10 Other stimulant abuse, uncomplicated; R79.89 Other specified abnormal findings of blood chemistry; F17.200 Nicotine dependence, unspecified, uncomplicated; F31.9 Bipolar disorder, unspecified; I10 Essential (primary) hypertension; Z79.899 Other long term (current) drug therapy; Z88.0 Allergy status to penicillin; Z60.2 Problems related to living alone; Z59.00 Homelessness unspecified; Z20.822 Contact with and (suspected) exposure to COVID-19
CPT/HCPCS: 36415; 80048-TC; 80076-TC; 81001; 85025-TC; G0480

== ENCOUNTER 2024-05-12 14:36 | Emergency (ER) | payer OTHER ==
[~2024-05-12] VITALS: Ht 180.3 cm; Wt 108.9 kg
[2024-05-12 15:11] LABS: BASOPHILS % (AUTO) 0.3 % (0.0-2.0); EOSINOPHILS # (AUTO) 0.1 K/uL (0.0-0.7); EOSINOPHILS % (AUTO) 1.6 % (0.0-6.0); HEMATOCRIT 38 % (39-51); HEMOGLOBIN 12.5 g/dL (13.5-17.5); LYMPHOCYTES # (AUTO) 1.3 K/uL (0.8-4.8); LYMPHOCYTES % (AUTO) 17.4 % (20.0-44.0); MEAN CORPUSCULAR HEMOGLOBIN 27 PG (26.0-33.0); MEAN CORPUSCULAR HGB CONC 33 g/dl (31.0-36.0); MEAN CORPUSCULAR VOLUME 84 fL (80-96); MONOCYTES # (AUTO) 0.6 K/uL (0.1-1.30); MONOCYTES % (AUTO) 8.7 % (2.0-12.0); NEUTROPHILS # (AUTO) 5.2 K/uL (1.8-8.9); PLATELET COUNT (AUTO) 210 K/uL (150-450); RED BLOOD CELL COUNT(AUTO) 4.58 MIL/uL (4.5-6.0); RED CELL DISTRIBUTION WIDTH 16.1 % (11.5-15.0); WHITE BLOOD COUNT (AUTO) 7.3 K/uL (4.3-11.0)
[2024-05-12 15:25] LABS: ALANINE AMINOTRANSFERASE 98 U/L (12-78); ALBUMIN 3.7 g/dL (3.4-5.0); ALCOHOL, BLOOD < 3 mg/dL (0-10); ALKALINE PHOSPHATASE 111 U/L (46-116); ASPARTATE AMINOTRANSFERASE 399 U/L (15-37); BILIRUBIN,DIRECT 0.1 mg/dL (0.0-0.2); BILIRUBIN,TOTAL 0.3 mg/dL (0.2-1.0); CALCIUM, SERUM 8.5 mg/dL (8.5-10.1); CARBON DIOXIDE 26 mmol/L (21-32); CHLORIDE 108 mmol/L (98-107); CREATININE 1.1 mg/dL (0.6-1.3); GLUCOSE 112 mg/dL (74-106); POTASSIUM 3.7 mmol/L (3.5-5.1); SODIUM SERUM 143 mmol/L (136-145); TOTAL PROTEIN, SERUM 7.1 g/dL (6.4-8.2); UREA NITROGEN, BLOOD 18 mg/dL (7-18)
[2024-05-12 15:26] LABS: APPEARANCE,URINE CLEAR (CLEAR); BILIRUBIN,URINE NEGATIVE (NEGATIVE); BLOOD, URINE NEGATIVE Ery/uL (NEGATIVE); COLOR,URINE YELLOW (YELLOW); KETONES,URINE NEGATIVE (NEGATIVE); LEUKOCYTE ESTERASE ,URINE NEGATIVE (NEGATIVE); NITRITE, URINE NEGATIVE (NEGATIVE); PROTEIN,URINE NEGATIVE (NEGATIVE); UGLUCOSE NEGATIVE (NEGATIVE); UROBILINOGEN,URINE 0.2 EU/dL (0.2)
[2024-05-12 15:30] LABS: ACETAMINOPHEN 0 ug/ml (10-30); SALICYLATE 1.7 mg/dL (2.8-20.0)
[2024-05-12 15:34] VITALS: TEMP 98.6
[2024-05-12] MEDS ORDERED: AMLODIPINE BESYLATE 10 MG TABLET ONE (15:43)
[2024-05-12] MEDS: AMLODIPINE BESYLATE 5 MG TABLET PO ONE (15:50)
[2024-05-12 16:03] LABS: AMPHETAMINE, URINE NEGATIVE (NEGATIVE); BARBITURATE, URINE NEGATIVE (NEGATIVE); BENZODIAZEPINE, URINE NEGATIVE (NEGATIVE); CANNABINOID, URINE NEGATIVE (NEGATIVE); COCCAINE, URINE NEGATIVE (NEGATIVE); OPIATE, URINE NEGATIVE (NEGATIVE); PHENCYCLIDINE SCREEN,URINE NEGATIVE (NEGATIVE)
[2024-05-12 18:57] VITALS: BP 145/89; O2SAT 97
== END 2024-05-12 23:47 ==
LOC: ER 14:41
DX: R45.851 Suicidal ideations (principal); F15.10 Other stimulant abuse, uncomplicated; F17.200 Nicotine dependence, unspecified, uncomplicated; I10 Essential (primary) hypertension; Z79.899 Other long term (current) drug therapy; Z88.0 Allergy status to penicillin; Z60.2 Problems related to living alone; Z20.822 Contact with and (suspected) exposure to COVID-19
CPT/HCPCS: 36415; 80048-TC; 80076-TC; 85025-TC; G0480